=== PATIENT | male | born 1945 | race Caucasian/White ===

== ENCOUNTER → 2018-05-07 | Outpatient (CLI) | payer MEDICARE, BC ==
--- NOTE | 2018-05-07 16:01 | NM ---
EXAMINATION TYPE: NM bone scan whole body DATE OF EXAM: 05/07/2018 COMPARISON: NONE HISTORY: Prostate cancer Delayed whole-body scanning was performed following the injection of 24.6 mCi Tc 99m MDP. Images acq uired 3.5 hours post injection. FINDINGS: Abnormal uptake involving the shoulders, wrists, knees suggestive of post arthritic change. Single abnormal focus involving the posterior right acetabulum nonspecific. Faint abnormal uptake involving the left cervical, lower thoracic, and lumbar spine likely degenerati ve. IMPRESSION: 1. Uptake involving the vertebral column likely degenerative or postsurgical. 2. Nonspecific uptake posterior right acetabulum. No definite corresponding CT abnormality. 3. Abnormal uptake reported within the CT scan within the pubic rami appear mild intensity and theref ore nonspecific but not diagnostic of metastases. Follow-up exam on a short-term basis could be obtai kimberley due to the tiny size of the areas of sclerosis.
--- NOTE | 2018-05-07 16:34 | CT ---
EXAMINATION TYPE: CT pelvis wo con DATE OF EXAM: 05/07/2018 COMPARISON: None HISTORY: Recent diagnosis of prostate carcinoma. CT DLP: 299 mGycm Automated exposure control for dose reduction was used. FINDINGS: The prostate gland is enlarged and heterogenous containing central zone calcifications and evidence o f prior TURP. There is asymmetry of the right lateral mid gland and apex with extension towards the s eminal vesicles and neurovascular bundle. There are no greater than 1 cm short axis lymph nodes withi n the visualized pelvis. Moderate femoral acetabular arthropathy is seen bilaterally. Postsurgical changes are present at the lumbosacral junction. There are punctate sclerotic foci of the inferior pubic rami bilaterally on ser ies 3 image 44 and 43. These are low suspicion. Urinary bladder is nondistended, likely accounting for the circumferential urinary bladder wall thick ening. No evidence of dilated large or small bowel. Appendix is partially air-filled and within tim l limits. The visualized emanating from the right lower pole of the kidney there is a fluid attenuated 3.4 cm p robable right renal cyst. Moderate atherosclerosis is seen of the abdominal aorta and its branches. N umerous calcifications of the subcutaneous soft tissues and gluteal musculature, right greater than l eft, are likely posttraumatic or related to myositis ossificans. IMPRESSION: 1. ASYMMETRY OF THE RIGHT LATERAL MID GLAND AND APEX WITH BULBOUS CONTOUR TOWARDS THE SEMINAL VESICLE AND NEUROVASCULAR BUNDLES. RIGHT SEMINAL VESICLES ARE SLIGHTLY ASYMMETRICALLY ENLARGED IN COMPARISON TO THE LEFT, CONCERNING FOR INVASION. MR PROSTATE COULD BE PERFORMED FOR FURTHER EVALUATION OR 2. PUNCTATE INFERIOR PUBIC RAMI FOCI OF SCLEROSIS FAVORED TO REPRESENT BONE ISLANDS AND OF LOW SUSPIC ION FOR OSSEOUS METASTASIS, HOWEVER SHORT-TERM FOLLOW-UP COULD ENSURE STABILITY.
== END | disposition home or self-care (01) ==
LOC: RADNMMAIN 09:57
PROVIDERS: ATTEND Urology
DX: C61 Malignant neoplasm of prostate (principal); R93.7 Abnormal findings on diagnostic imaging of other parts of musculoskeletal system; Z88.5 Allergy status to narcotic agent
CPT/HCPCS: 72192; 78306; A9503

== ENCOUNTER → 2018-06-21 | Outpatient (CLI) | payer MEDICARE, OTHER ==
[2018-06-21 13:52] LABS: Basophils % (A) 0 %; Eosinophils # (A) 0.2 k/uL (0-0.7); Eosinophils % (A) 2 %; HCT 47.7 % (39.0-53.0); HGB 15.6 gm/dL (13.0-17.5); Lymphocytes # (A) 3.2 k/uL (1.0-4.8); Lymphocytes % (A) 34 %; MCHC 32.7 g/dL (31.0-37.0); MCV 88.9 fL (80.0-100.0); Mean Platelet Volume 6.2; Monocytes # (A) 0.5 k/uL (0-1.0); Monocytes % (A) 5 %; Neutrophils # (A) 5.4 k/uL (1.3-7.7); Neutrophils % (A) 57 %; Platelet Count 260 k/uL (150-450); RBC 5.36 m/uL (4.30-5.90); RDW 13.6 % (11.5-15.5); WBC 9.5 k/uL (3.8-10.6)
[2018-06-21 14:05] LABS: Calcium 9.6 mg/dL (8.4-10.2); Potassium 4.5 mmol/L (3.5-5.1)
== END | disposition home or self-care (01) ==
LOC: LABPAT 12:14
PROVIDERS: ATTEND Urology
DX: Z01.812 Encounter for preprocedural laboratory examination (principal); R53.83 Other fatigue; C61 Malignant neoplasm of prostate; N28.9 Disorder of kidney and ureter, unspecified
CPT/HCPCS: 36415; 80048; 85025; 86850; 86900; 86901

== ENCOUNTER 2018-06-29 07:30 | Inpatient (IN) | payer BC, MEDICARE, OTHER ==
[2018-06-26 14:47] VITALS: BMI 24.6
--- NOTE | 2018-06-29 06:28 | P.GSHP ---
History of Present Illness H&P Date: 06/24/18 Chief Complaint: Prostate cancer The patient is a 73-year-old male who underwent a TURP in January 2013. He was recently seen back in the office for an elevated PSA level of 5.1. JENNY revealed the prostate to be firm in consistency. Prostate ultrasound revealed a 44 g prostate, with no hypoechoic lesions but increased tissue density was noted. Biopsies showed poorly differentiated adenocarcinoma in 12 of 12 biopsies. His metastatic evaluation consisted of a bone scan and computed tomography scan, both of which were negative. Alternative treatment options were reviewed in detail. These include robotic-assisted laparoscopic prostatectomy (RALP) versus IMRT combined with androgen deprivation therapy. He has elected to undergo an RALP with wide excision and extended pelvic lymphadenectomy. - Constitutional Constitutional: Denies weight loss - Gastrointestinal Gastrointestinal: Reports heartburn, Reports indigestion - Genitourinary (Female) Genitourinary: Reports nocturia, Reports urinary frequency Past Medical History Past Medical History: GERD/Reflux, Hyperlipidemia, Renal Disease Additional Past Medical History / Comment(s): Prostate Cancer - Past Family History Mother Family Medical History: No Reported History Medications and Allergies Home Medications Medication Instructions Recorded Confirmed Type Cetirizine HCl [Zyrtec] 10 mg PO DAILY 06/26/18 06/26/18 History Esomeprazole Magnesium [NexIUM] 40 mg PO QAM 06/26/18 06/26/18 History Mirtazapine [Remeron] 15 mg PO HS 06/26/18 06/26/18 History Multivitamins, Thera [Multivitamin 1 tab PO DAILY 06/26/18 06/26/18 History (formulary)] [place]-3 Fatty Acids/Fish Oil [Fish 1 each PO DAILY 06/26/18 06/26/18 History Oil 1,000 mg Softgel] Rosuvastatin [Crestor] 10 mg PO DAILY 06/26/18 06/26/18 History Allergies Allergy/AdvReac Type Severity Reaction Status Date / Time codeine Allergy Nausea & Verified 06/26/18 14:36 Vomiting Surgical - Exam - General well developed, well nourished, no distress - Respiratory normal respiratory effort - Abdomen Abdomen: soft, non tender, no guarding, no rigid, no rebound - Genitourinary normal penis with no external lesions, testicles non-tender - Rectum Rectum: normal sphincter tone, no masses, other (Prostate moderately enlarged, firm in consistency) - Psychiatric oriented to time, oriented to person, oriented to place, speech is normal, memory intact Assessment and Plan (1) Adenocarcinoma of prostate Status: Acute Code(s): C61 - MALIGNANT NEOPLASM OF PROSTATE SNOMED Code(s): 147454054 Plan: The patient has elected to undergo a robotic-assisted laparoscopic prostatectomy (RALP) with bilateral pelvic lymphadenectomy. The procedure has been reviewed in detail with the patient. The anticipated perioperative course was discussed. Potential risks were reviewed, which include anesthesia, bleeding, infection, neurovascular injury, bowel injury, lymphocele, urinary leak, and vesical neck contracture. He understands the possibility that the procedure will need to be converted to an open procedure. The likely need for adjuvant therapy has been discussed. The possibility of post-prostatectomy urinary incontinence is well understood by the patient.
[~2018-06-29 07:30] MED LIST: DEXAMETHASONE SOD PHOSPHATE 10 MG/ML 1 ML VIAL IV ONE; LIDOCAINE 1% 20 ML VIAL (10MG/ML) FOR IV START INTRADERMA PRN; MIDAZOLAM (PF) 2 MG/2 ML VIAL IV PRN; ONDANSETRON 4 MG/2 ML VIAL IVP ONE; ceFAZolin IN SWFI 2 GM/20 ML SYRINGE IVP ONE; fentaNYL (PF) 50 MCG/ML 2 ML AMP IV PRN
[2018-06-29] MEDS: LACTATED RINGERS 1,000 ML IV SCH (10:58)
[2018-06-29] MEDS ORDERED: LIDOCAINE 1% 20 ML VIAL (10MG/ML) FOR IV START INTRADERMA ONE (11:02)
[2018-06-29] MEDS ORDERED: HYDROmorphone (PF) 1 MG/ML ONE (12:07)
[2018-06-29] MEDS ORDERED: LIDOCAINE 1% INJ 10MG/ML (20 ML MDV) ONE (12:07)
[2018-06-29] MEDS ORDERED: SUCCINYLCHOLINE CHLORIDE 100 MG/5 ML SYR IV ONE (12:07)
[2018-06-29] MEDS ORDERED: fentaNYL (PF) 50 MCG/ML 2 ML AMP ONE (12:07)
[2018-06-29] MEDS ORDERED: GLYCOPYRROLATE 0.2 MG/ML 2 ML VIAL ONE (12:07)
[2018-06-29] MEDS ORDERED: NEOSTIGMINE 1 MG/ML 10 ML VIAL ONE (12:07)
[2018-06-29] MEDS ORDERED: ROCURONIUM BROMIDE 10 MG/ML 10 ML VIAL IV ONE (12:07)
[2018-06-29] MEDS ORDERED: PROPOFOL 10 MG/ML 20 ML VIAL IV ONE (12:07)
[2018-06-29] MEDS ORDERED: BUPIVACAINE (PF) 0.25% 30 ML VIAL SQ ONE (12:45)
[2018-06-29] MEDS ORDERED: ACETAMINOPHEN TAB 325 MG TAB PO PRN (14:35)
[2018-06-29] MEDS ORDERED: ONDANSETRON 4 MG/2 ML VIAL IVP PRN (14:35)
--- NOTE | 2018-06-29 14:37 | P.OP ---
Date of Procedure: 06/29/18 Preoperative Diagnosis: Adenocarcinoma of the Prostate Postoperative Diagnosis: Same Procedure(s) Performed: Robotic-assisted laparoscopic prostatectomy (RALP) with bilateral pelvic lymphadenectomy Anesthesia: KIT Surgeon: Libby Ross Java Developer With Security Clearance #1: Michael Chanel Estimated Blood Loss (ml): 50 IV fluids (ml): 800 Pathology: other (Prostate, seminal vesicles, bilateral pelvic lymph nodes) Condition: stable Disposition: PACU Indications for Procedure: The patient is a 73-year-old male who underwent a TURP in January 2013. He was recently seen back in the office for an elevated PSA level of 5.1. JENNY revealed the prostate to be firm in consistency. Prostate ultrasound revealed a 44 g prostate, with no hypoechoic lesions but increased tissue density was noted. Biopsies showed poorly differentiated adenocarcinoma in 12 of 12 biopsies. His metastatic evaluation consisted of a bone scan and computed tomography scan, both of which were negative. Alternative treatment options were reviewed in detail. These include robotic-assisted laparoscopic prostatectomy (RALP) versus IMRT combined with androgen deprivation therapy. He has elected to undergo an RALP with wide excision and extended pelvic lymphadenectomy. Operative Findings: Extensive periprosthetic fibrosis. Description of Procedure: The patient was taken in the operating room and placed in the dorsal lithotomy position, with his legs supported in Rick stirrups. He was carefully positioned on a beanbag for stability. The abdomen and external genitalia were prepped and draped sterilely. A Julio catheter was inserted. The Veress needle was passed through the anterior abdominal wall immediately cephalad to the umbilicus, and insufflation was performed to a pressure of 20 mm Hg. Once insufflation was performed, the Veress needle was removed and a supraumbilical incision was made, through which a 12 mm camera port was placed. Under camera guidance, 3 8 mm robotic ports were placed, 2 on the left and one on the right. An additional 12 mm port was placed on the right lateral side for use as an engineer assistant port. A 5 mm port was placed to the right of the camera port for suction. The patient was placed in Trendelenburg position, and docking was then performed to the da Rocio system utilizing a 4-arm approach. The abdomen was examined. The sigmoid colon was mobilized out of the pelvis. The peritoneum was incised lateral to the medial umbilical ligaments bilaterally , exposing the pubis. The peritoneum was then incised across the midline, allowing the bladder flap to be taken down. The endopelvic fascia was opened bilaterally, and muscular attachments from the urogenital diaphragm were swept away from the prostate. Bilateral pelvic lymphadenectomies were performed in the standard fashion. The peritoneal incisions were extended in a cephalad direction, and the vas deferens were divided bilaterally. Margins of dissection were the bifurcation of the iliac vessels proximally, the circumflex iliac vein distally, the external iliac artery laterally, and the obturator nerve medially. A combination of sharp and blunt dissection was used. Care was taken to avoid any neurovascular injury, and the use of monopolar electrocautery was avoided immediately adjacent to neurovascular structures. The lymphatic package was clipped distally. No enlarged lymph nodes were encountered. There were no complications. The vesical neck was incised transversely, down to the lumen. The Julio catheter was brought out through the anterior vesical neck incision and was used for traction. The posterior aspect of the vesical neck was incised, such that the full-thickness of the vesical neck was divided. The vesical neck was somewhat larger than desired due to the prior TURP. The anterior layer of the Denonvilliers fascia was incised, exposing the vas deferens. Extensive fibrosis was noted, presumably due to the prior TURP. Each vas deferens was isolated and divided. Next, each of the seminal vesicles were dissected away from adjacent tissues, and vascular attachments were cauterized and divided. The posterior leaf of Denonvilliers fascia was incised transversely, allowing entry into the plane between the prostate and rectum. With lateral spreading, this plane was developed down to the apex. This exposed the lateral vascular pedicles bilaterally. These were clipped and divided in an antegrade fashion, down to the apex. Again, significant fibrosis was noted. The remaining apical attachments were swept away from the prostate. The dorsal venous complex was incised, as well as periurethral tissue. At this point, only the urethra remained intact. This was transected immediately distal to the prostatic apex using cold scissors. The specimen was placed within a specimen bag. The dorsal venous complex was sutured using a V-Loc suture in a running fashion. A second V-Loc suture was then used to place the Daniel stitch, incorporating the rhabdosphincter and the edge of Denonvilliers fascia. This allowed the bladder to be taken down to the urethra, leaving the vesical neck immediately adjacent to the urethra. The vesicourethral anastomosis was then performed using a V-Loc suture in a running fashion. After completing the anastomosis, an 18-[place] Julio catheter was placed and approximately 150 mL of 0.9 normal saline were instilled into the bladder. No extravasation of irrigant from the vesicourethral anastomosis was noted. Surgicel was placed over the vascular pedicles bilaterally. Tisseel was sprayed into the pelvis over the vascular pedicles, dorsal vein, and vesicourethral anastomosis. The patient was returned to the supine position. Undocking was performed, and the specimen bag sutures were passed through the camera port. After removing all the ports and allowing all of the CO2 to be released from the peritoneal cavity, the camera port incision was enlarged to allow removal of the surgical specimen. The fascia of this incision was then closed using 0 Vicryl suture in an interrupted [id number] fashion. Each of the skin incisions were then closed using 4-0 Monocryl suture in a subcuticular fashion. Marcaine was injected at each of the incision sites. Dermabond was applied to each incision. The Julio catheter was connected to gravity drainage. All sponge and needle counts were correct. The patient tolerated the procedure well was taken to the recovery room in stable condition.
--- NOTE | 2018-06-29 15:17 | XR ---
EXAMINATION TYPE: XR abdomen 1V DATE OF EXAM: 06/29/2018 COMPARISON: NONE HISTORY: Post surgery, looking for foreign body TECHNIQUE: One view abdominal series FINDINGS: There is subcutaneous emphysema and evidence of free intraperitoneal abdominal air. Report called to the OR. There is postsurgical change involving the lumbar spine. No additional metallic foreign body identified. Arthropathy of the hips. IMPRESSION: 1. Surgical change involving the lumbar spine. No additional radiopaque metallic foreign body identif ied. 2. There appears to be free intraperitoneal abdominal air and extensive subcutaneous emphysema. Corre late clinically.
[2018-06-29] MEDS: HYDROmorphone 0.5 MG/0.5 ML SYRINGE IVP PRN ×4 (15:22→16:22)
[2018-06-29] MEDS: HYDROmorphone 1 MG/ML 1 ML SYRINGE IVP PRN ×2 (18:16→21:04)
[2018-06-29] MEDS: HEPARIN SODIUM,PORCINE 5,000 UNIT/ML 1 ML VIAL SQ SCH (20:59)
[2018-06-29] MEDS ORDERED: MIRTAZAPINE 15 MG TAB PO SCH (21:00)
[2018-06-29] MEDS: DEXTROSE 5%-0.45% NACL 1,000 ML IV SCH (21:00)
[2018-06-30] MEDS ORDERED: ZOLPIDEM 5 MG TAB PO PRN (00:18)
[2018-06-30] MEDS: HYDROmorphone 1 MG/ML 1 ML SYRINGE IVP PRN ×4 (00:29→10:06)
[2018-06-30] MEDS: DEXTROSE 5%-0.45% NACL 1,000 ML IV SCH ×2 (00:30→11:16)
[2018-06-30] MEDS: LACTATED RINGERS 1,000 ML IV SCH (03:55)
[2018-06-30] MEDS ORDERED: PANTOPRAZOLE 40 MG TABLET PO SCH (07:30)
[2018-06-30] MEDS ORDERED: LORATADINE 10 MG TAB PO SCH (09:00)
[2018-06-30] MEDS: HEPARIN SODIUM,PORCINE 5,000 UNIT/ML 1 ML VIAL SQ SCH (09:00)
[2018-06-30] MEDS ORDERED: ATORVASTATIN 20 MG TAB PO SCH (09:00)
[2018-06-30 10:53] VITALS: BP 136/75; PULSE 72; RESP 20; TEMP 98.9
--- NOTE | 2018-06-30 13:03 | P.NPCON ---
History of Present Illness - Reason for Consult Consult date: 06/30/18 chronic renal failure - Chief Complaint Prostatectomy. - History of Present Illness 73-year-old gentleman coming to the hospital for elective prostatectomy. He has history of BPH status post TURP in 2 2012. His PSA was elevated to 5.1 and biopsy consistent with 12 out of 12 adenocarcinoma. He underwent total prostatectomy yesterday. He has underlying chronic kidney disease stage III cause unclear suspected to nephrosclerosis and baseline creatinine is 1.5 MG per DL. No new labs at this point. No NSAID use or recent contrast studies. No hypotensive episodes. Review of Systems Constitutional: Reports as per HPI Past Medical History Past Medical History: COPD, GERD/Reflux, Hyperlipidemia, Renal Disease Additional Past Medical History / Comment(s): Prostate Cancer History of Any Multi-Drug Resistant Organisms: None Reported Past Surgical History: Back Surgery, Hernia Repair, Prostate Surgery Additional Past Surgical History / Comment(s): HX LUMBAR FUSION, [place] CATARACT SX , TURP Past Anesthesia/Blood Transfusion Reactions: No Reported Reaction Past Psychological History: No Psychological Hx Reported Smoking Status: Current every day smoker Past Alcohol Use History: Occasional Additional Past Alcohol Use History / Comment(s): 3 CIGARETTES DAILY SINCE AGE 21'S Past Drug Use History: None Reported - Past Family History Mother Family Medical History: No Reported History Daughter(s) Family Medical History: No Reported History Medications and Allergies Home Medications Medication Instructions Recorded Confirmed Type Cetirizine HCl [Zyrtec] 10 mg PO DAILY 06/26/18 06/29/18 History Esomeprazole Magnesium [NexIUM] 40 mg PO QAM 06/26/18 06/29/18 History Mirtazapine [Remeron] 15 mg PO HS 06/26/18 06/29/18 History Multivitamins, Thera [Multivitamin 1 tab PO DAILY 06/26/18 06/29/18 History (formulary)] [place]-3 Fatty Acids/Fish Oil [Fish 1 cap PO DAILY 06/26/18 06/29/18 History Oil 1,000 mg Softgel] Rosuvastatin [Crestor] 10 mg PO DAILY 06/26/18 06/29/18 History Allergies Allergy/AdvReac Type Severity Reaction Status Date / Time codeine Allergy Nausea & Verified 06/29/18 16:03 Vomiting Physical Exam Vitals: Vital Signs Temp Pulse Resp BP Pulse Ox 06/30/18 07:00 98.9 F 72 20 136/75 94 L 06/30/18 00:26 98.7 F 74 18 128/71 95 06/29/18 18:44 70 16 149/75 96 06/29/18 18:28 67 133/82 95 06/29/18 18:14 70 133/82 96 06/29/18 17:59 69 143/82 95 06/29/18 17:44 69 138/76 95 06/29/18 17:29 68 137/78 95 06/29/18 17:14 97.6 F 70 145/78 94 L 06/29/18 16:24 69 16 122/60 100 06/29/18 16:09 68 16 124/64 96 06/29/18 15:54 67 16 106/76 96 06/29/18 15:39 63 16 124/67 94 L 06/29/18 15:24 63 16 124/66 96 06/29/18 15:09 97 F L 59 L 18 102/61 95 Intake and Output 06/29/18 06/30/18 06/30/18 22:59 06:59 14:59 Intake Total 600 2000 Output Total 140 2750 900 Balance 460 -750 -900 Intake: IV 600 Intake, IV Titration 2000 Amount Dextrose 5%-0.45% NaCl 1, 2000 000 ml @ 125 mls/hr IV . Q8H [facility] Rx#:[id number] Output: Urine 140 2750 900 Uretheral (Julio) 900 Other: Voiding Method Indwelling Catheter Indwelling Catheter Weight 87.09 kg No acute distress S1-S2 heard Lungs clear Julio catheter pinkish urine No edema Assessment and Plan Assessment: #1 CK D3 secondary to nephrosclerosis baseline creatinine 1.5 MG per DL. #2 adenocarcinoma of prostate status post prostatectomy. Plan: #1 no new labs. Currently on IV fluids normal saline at 125 ML's an hour and good urine output. #2 is staying overnight check BMP in the morning if not BMP couple of days before office visit.
--- NOTE | 2018-06-30 13:32 | P.DS ---
Providers Date of admission: 06/29/18 09:32 Expected date of discharge: 06/30/18 Attending physician: Michael Chanel Primary care physician: Tarik Curran - Discharge Diagnosis(es) (1) Adenocarcinoma of prostate Current Visit: No Status: Acute Hospital Course: On the day of admission, the patient underwent an uncomplicated robotic assisted laparoscopic prostatectomy (RALP) with bilateral pelvic lymphadenectomy. Significant periprostatic scarring was noted. Intraoperatively, he was noted to have bilateral inguinal hernias. The postoperative course was unremarkable. He remained afebrile with stable vital signs. On the first postoperative day, he was tolerating diet and ambulating. The abdomen was soft, non-distended, and non-tender. The incisions were clean and dry. The Julio catheter was draining clear yellow urine. Procedures: RALP with bilateral pelvic lymphadenectomy on 06/29/2018. Patient Condition at Discharge: Good Plan - Discharge Summary Discharge Rx Participant: No New Discharge Prescriptions: New Ciprofloxacin HCl [Cipro] 250 mg PO Q12HR #6 tablet HYDROmorphone [Dilaudid] 4 mg PO Q6H PRN 3 Days #6 tab PRN Reason: Severe Pain traMADol HCL [Ultram] 50 mg PO Q6HR PRN 3 Days #12 tab PRN Reason: Moderate To Severe Pain No Action Multivitamins, Thera [Multivitamin (formulary)] 1 tab PO DAILY Mirtazapine [Remeron] 15 mg PO HS Esomeprazole Magnesium [NexIUM] 40 mg PO QAM Cetirizine HCl [Zyrtec] 10 mg PO DAILY Rosuvastatin [Crestor] 10 mg PO DAILY [place]-3 Fatty Acids/Fish Oil [Fish Oil 1,000 mg Softgel] 1 cap PO DAILY Discharge Medication List Cetirizine HCl [Zyrtec] 10 mg PO DAILY 06/26/18 [History] Esomeprazole Magnesium [NexIUM] 40 mg PO QAM 06/26/18 [History] Mirtazapine [Remeron] 15 mg PO HS 06/26/18 [History] Multivitamins, Thera [Multivitamin (formulary)] 1 tab PO DAILY 06/26/18 [History ] [place]-3 Fatty Acids/Fish Oil [Fish Oil 1,000 mg Softgel] 1 cap PO DAILY [History] Rosuvastatin [Crestor] 10 mg PO DAILY 06/26/18 [History] Ciprofloxacin HCl [Cipro] 250 mg PO Q12HR #6 tablet 06/30/18 [Rx] HYDROmorphone [Dilaudid] 4 mg PO Q6H PRN 3 Days #6 tab 06/30/18 [Rx] traMADol HCL [Ultram] 50 mg PO Q6HR PRN 3 Days #12 tab 06/30/18 [Rx] Follow up Appointment(s)/Referral(s): Michael Chanel MD [STAFF PHYSICIAN] - 07/06/18 Activity/Diet/Wound Care/Special Instructions: Discharge home with Julio catheter. Instruct patient to use overnight drainage bag as well as urinary leg bag. Okay to shower. Diet as tolerated. No lifting , driving, or strenuous activity. Reassure patient that abdominal wall ecchymosis and penoscrotal swelling are normal. Instruct patient to begin taking antibiotics one day prior to Julio catheter removal. Discharge Disposition: HOME SELF-CARE
== END 2018-06-30 14:45 | disposition home or self-care (01) | DRG 708 ==
LOC: 2ORMAIN 09:32 → 4SSUR 15:43
PROVIDERS: ADMIT Urology; ATTEND Urology
PROC: 07BC4ZZ Excision of Pelvis Lymphatic, Percutaneous Endoscopic Approach (ICD-10-PCS; 2018-06-29)
PROC: 8E0W4CZ Robotic Assisted Procedure of Trunk Region, Percutaneous Endoscopic Approach (ICD-10-PCS; 2018-06-29)
PROC: 0VT04ZZ Resection of Prostate, Percutaneous Endoscopic Approach (ICD-10-PCS; principal; 2018-06-29 11:25)
DX: C61 Malignant neoplasm of prostate (principal); I12.9 Hypertensive chronic kidney disease with stage 1 through stage 4 chronic kidney disease, or unspecified chronic kidney disease; N18.3 Chronic kidney disease, stage 3 (moderate); E78.5 Hyperlipidemia, unspecified; K40.20 Bilateral inguinal hernia, without obstruction or gangrene, not specified as recurrent; J44.9 Chronic obstructive pulmonary disease, unspecified; K21.9 Gastro-esophageal reflux disease without esophagitis; F17.200 Nicotine dependence, unspecified, uncomplicated; Z79.899 Other long term (current) drug therapy; Z98.1 Arthrodesis status; Z98.42 Cataract extraction status, left eye; Z98.41 Cataract extraction status, right eye
CPT/HCPCS: 74018; 86850; 86900; 86901

== ENCOUNTER 2018-09-03 11:54 | Observation (INO) | payer MEDICARE, OTHER ==
[2018-09-03] MEDS ORDERED: ASPIRIN 81 MG PO STA (12:24)
[2018-09-03] MEDS ORDERED: SODIUM CHLORIDE 0.9% 1,000 ML IV STA (12:24)
[2018-09-03] MEDS ORDERED: HYDROmorphone 1 MG/ML 1 ML SYRINGE IVP STA (12:35)
[2018-09-03] MEDS ORDERED: ONDANSETRON 4 MG/2 ML VIAL IVP STA (12:35)
--- NOTE | 2018-09-03 12:35 | ED ---
General Adult HPI - General Chief complaint: Chest Pain Stated complaint: CHEST PAIN Time Seen by Provider: 09/03/18 12:00 Source: patient, RN notes reviewed Mode of arrival: wheelchair Limitations: no limitations - History of Present Illness Initial comments: This is a 73-year-old male who presents emergency department with past medical history significant for high cholesterol and smoking. Patient also has a recent past medical history significant for prostate cancer for which she had a prostatectomy about 9 weeks ago. Patient comes in today because he was having some left shoulder radiculopathy which she has had many times in the past. Patient states it progressed to anterior chest discomfort as well as left-sided neck discomfort and upper back discomfort. Patient states she was so significant that he was unable to lie flat last night and had to sit up in bed for the whole night. Patient states that symptoms are slightly better now. Patient states it does hurt worse with deep breath in the chest. Patient denies any shortness of breath or difficulty breathing. Patient denies any palpitation. Patient denies any lightheadedness dizziness or syncopal episode. Patient denies any abdominal pain patient denies nausea vomiting diarrhea. Patient denies any recent injury or trauma. Patient denies any swelling of the legs or calf tenderness. - Related Data Home Medications Medication Instructions Recorded Confirmed Cetirizine HCl [Zyrtec] 10 mg PO DAILY 06/26/18 09/03/18 Mirtazapine [Remeron] 15 mg PO HS 06/26/18 09/03/18 Multivitamins, Thera [Multivitamin 1 tab PO DAILY 06/26/18 09/03/18 (formulary)] Cato-3 Fatty Acids/Fish Oil [Fish 1 cap PO DAILY 06/26/18 09/03/18 Oil 1,000 mg Softgel] Rosuvastatin [Crestor] 10 mg PO DAILY 06/26/18 09/03/18 Diazepam [Valium] 5 mg PO HS 09/03/18 09/03/18 Esomeprazole Magnesium [NexIUM] 40 mg PO BID 09/03/18 09/03/18 Leuprolide Acetate [Lupron Depot] 45 mg PO Q28H 09/03/18 09/03/18 Previous Rx's Medication Instructions Recorded HYDROmorphone [Dilaudid] 4 mg PO Q6H PRN 3 Days #6 tab 06/30/18 Allergies Allergy/AdvReac Type Severity Reaction Status Date / Time codeine Allergy Nausea & Verified 09/03/18 12:45 Vomiting Review of Systems ROS Statement: Those systems with pertinent positive or pertinent negative responses have been documented in the HPI. ROS Other: All systems not noted in ROS Statement are negative. Past Medical History Past Medical History: COPD, GERD/Reflux, Hyperlipidemia, Renal Disease Additional Past Medical History / Comment(s): Prostate Cancer History of Any Multi-Drug Resistant Organisms: None Reported Past Surgical History: Back Surgery, Hernia Repair, Prostate Surgery Additional Past Surgical History / Comment(s): HX LUMBAR FUSION, [place] CATARACT SX , TURP Past Anesthesia/Blood Transfusion Reactions: No Reported Reaction Past Psychological History: No Psychological Hx Reported Smoking Status: Current every day smoker Past Alcohol Use History: Occasional Past Drug Use History: None Reported - Past Family History Mother Family Medical History: No Reported History Daughter(s) Family Medical History: No Reported History General Exam - General Exam Comments Initial Comments: GENERAL: Patient is well-developed and well-nourished. Patient is nontoxic and well- hydrated and is in mild distress. ENT: Neck is soft and supple. No significant lymphadenopathy is noted. Oropharynx is clear. Moist mucous membranes. Neck has full range of motion without eliciting any pain. EYES: The sclera were anicteric and conjunctiva were pink and moist. Extraocular movements were intact and pupils were equal round and reactive to light. Eyelids were unremarkable. PULMONARY: Unlabored respirations. Good breath sounds bilaterally. No audible rales rhonchi or wheezing was noted. CARDIOVASCULAR: There is a regular rate and rhythm without any murmurs gallops or rubs. ABDOMEN: Soft and nontender with normal bowel sounds. No palpable organomegaly was noted. There is no palpable pulsatile mass. SKIN: Skin is clear with no lesions or rashes and otherwise unremarkable. NEUROLOGIC: Patient is alert and oriented x3. Cranial nerves II through XII are grossly intact. Motor and sensory are also intact. Normal speech, volume and content. Symmetrical smile. MUSCULOSKELETAL: Normal extremities with adequate strength and full range of motion. No lower extremity swelling or edema. No calf tenderness. LYMPHATICS: No significant lymphadenopathy is noted PSYCHIATRIC: Normal psychiatric evaluation. Normal interpersonal interactions appears functionally intact in deals appropriately with others. No signs of depression. No signs of anxiety. Limitations: no limitations Course Vital Signs 09/03/18 09/03/18 09/03/18 11:57 12:35 12:52 Temperature 99.5 F Pulse Rate 87 78 Pulse Rate [ 76 Bilateral Dustless Operator ] Respiratory 18 18 Rate Blood Pressure 136/81 134/94 O2 Sat by Pulse 96 Oximetry 09/03/18 14:33 Temperature Pulse Rate 68 Pulse Rate [ Bilateral Dustless Operator ] Respiratory 18 Rate Blood Pressure 131/52 O2 Sat by Pulse 97 Oximetry Medical Decision Making - Medical Decision Making EKG shows normal sinus rhythm at 83 bpm MT interval is 170 QRS is 94 QT interval 370 QTC is 444. Patient's EKG shows no ST segment elevation or depression no T-wave abnormalities are noted. Computed tomography scan shows some bibasilar atelectasis. - Lab Data Result diagrams: 09/03/18 12:33 09/03/18 12:33 Lab Results 09/03/18 09/03/18 09/03/18 Range/Units 12:33 12:33 12:33 WBC 11.3 H (3.8-10.6) k/uL RBC 4.94 (4.30-5.90) m/uL Hgb 14.9 (13.0-17.5) gm/dL Hct 43.8 (39.0-53.0) % MCV 88.6 (80.0-100.0) fL MCH 30.1 (25.0-35.0) pg MCHC 34.0 (31.0-37.0) g/dL RDW 14.1 (11.5-15.5) % Plt Count 209 (150-450) k/uL Neutrophils % 81 % Lymphocytes % 11 % Monocytes % 6 % Eosinophils % 1 % Basophils % 0 % Neutrophils # 9.2 H (1.3-7.7) k/uL Lymphocytes # 1.2 (1.0-4.8) k/uL Monocytes # 0.6 (0-1.0) k/uL Eosinophils # 0.1 (0-0.7) k/uL Basophils # 0.0 (0-0.2) k/uL PT (9.0-12.0) sec INR (<1.2) APTT (22.0-30.0) sec D-Dimer (<0.60) mg/L FEU Sodium 139 (137-145) mmol/L Potassium 4.8 (3.5-5.1) mmol/L Chloride 106 (98-107) mmol/L Carbon Dioxide 25 (22-30) mmol/L Anion Gap 8 mmol/L BUN 19 (9-20) mg/dL Creatinine 1.34 H (0.66-1.25) mg/dL Est GFR (CKD-EPI)AfAm 61 (>60 ml/min/1.73 sqM) Est GFR (CKD-EPI)NonAf 53 (>60 ml/min/1.73 sqM) Glucose 136 H (74-99) mg/dL Calcium 9.3 (8.4-10.2) mg/dL Magnesium 1.9 (1.6-2.3) mg/dL Total Bilirubin 1.0 (0.2-1.3) mg/dL AST 22 (17-59) U/L ALT 27 (21-72) U/L Alkaline Phosphatase 54 (38-126) U/L Total Creatine Kinase 48 L (55-170) U/L CK-MB (CK-2) 0.5 (0.0-2.4) ng/mL CK-MB (CK-2) Rel Index 1.0 Troponin I <0.012 (0.000-0.034) ng/mL Total Protein 6.9 (6.3-8.2) g/dL Albumin 4.0 (3.5-5.0) g/dL 09/03/18 Range/Units 12:33 WBC (3.8-10.6) k/uL RBC (4.30-5.90) m/uL Hgb (13.0-17.5) gm/dL Hct (39.0-53.0) % MCV (80.0-100.0) fL MCH (25.0-35.0) pg MCHC (31.0-37.0) g/dL RDW (11.5-15.5) % Plt Count (150-450) k/uL Neutrophils % % Lymphocytes % % Monocytes % % Eosinophils % % Basophils % % Neutrophils # (1.3-7.7) k/uL Lymphocytes # (1.0-4.8) k/uL Monocytes # (0-1.0) k/uL Eosinophils # (0-0.7) k/uL Basophils # (0-0.2) k/uL PT 9.9 (9.0-12.0) sec INR 0.9 (<1.2) APTT 24.8 (22.0-30.0) sec D-Dimer 0.52 (<0.60) mg/L FEU Sodium (137-145) mmol/L Potassium (3.5-5.1) mmol/L Chloride (98-107) mmol/L Carbon Dioxide (22-30) mmol/L Anion Gap mmol/L BUN (9-20) mg/dL Creatinine (0.66-1.25) mg/dL Est GFR (CKD-EPI)AfAm (>60 ml/min/1.73 sqM) Est GFR (CKD-EPI)NonAf (>60 ml/min/1.73 sqM) Glucose (74-99) mg/dL Calcium (8.4-10.2) mg/dL Magnesium (1.6-2.3) mg/dL Total Bilirubin (0.2-1.3) mg/dL AST (17-59) U/L ALT (21-72) U/L Alkaline Phosphatase (38-126) U/L Total Creatine Kinase (55-170) U/L CK-MB (CK-2) (0.0-2.4) ng/mL CK-MB (CK-2) Rel Index Troponin I (0.000-0.034) ng/mL Total Protein (6.3-8.2) g/dL Albumin (3.5-5.0) g/dL Disposition Clinical Impression: Chest pain Disposition: ADMITTED IP TO THIS [facility] Referrals: Tarik Curran MD [Primary Care Provider] - 1-2 days Time of Disposition: 15:06
[2018-09-03 12:56] LABS: Basophils % (A) 0 %; Eosinophils # (A) 0.1 k/uL (0-0.7); Eosinophils % (A) 1 %; HCT 43.8 % (39.0-53.0); HGB 14.9 gm/dL (13.0-17.5); Lymphocytes # (A) 1.2 k/uL (1.0-4.8); Lymphocytes % (A) 11 %; MCH 30.1 pg (25.0-35.0); MCV 88.6 fL (80.0-100.0); Mean Platelet Volume 6.7; Monocytes # (A) 0.6 k/uL (0-1.0); Monocytes % (A) 6 %; Neutrophils # (A) 9.2 k/uL (1.3-7.7); Neutrophils % (A) 81 %; Platelet Count 209 k/uL (150-450); RBC 4.94 m/uL (4.30-5.90); RDW 14.1 % (11.5-15.5); WBC 11.3 k/uL (3.8-10.6)
[2018-09-03 13:05] LABS: Calcium 9.3 mg/dL (8.4-10.2); Magnesium 1.9 mg/dL (1.6-2.3); Potassium 4.8 mmol/L (3.5-5.1); Total Protein 6.9 g/dL (6.3-8.2)
[2018-09-03 13:07] LABS: D-Dimer 0.52 mg/L FEU (<0.60); INR 0.9 (<1.2); Partial Thromboplastin Time 24.8 sec (22.0-30.0); Prothrombin Time 9.9 sec (9.0-12.0)
--- NOTE | 2018-09-03 13:12 | XR ---
EXAMINATION TYPE: XR chest 2V DATE OF EXAM: 09/03/2018 COMPARISON: NONE TECHNIQUE: PA and lateral views submitted. HISTORY: Chest pain FINDINGS: The lungs are clear and there is no pneumothorax, pleural effusion, or focal pneumonia. Hyperinflat ion suggests COPD. Arthropathy of the shoulders. Subsegmental changes at both lung bases. Hypertrophi c and degenerative change of the spine. IMPRESSION: 1. Correlate for COPD. Basilar atelectasis or scar favored over infiltrate correlate clinically. Late ral view does demonstrate increased attenuation particularly posteriorly. Underlying consolidation or neoplasm not entirely excluded.
[2018-09-03 13:13] LABS: Creatine Kinase 48 U/L (55-170)
[2018-09-03 13:26] LABS: Creatine Kinase MB 0.5 ng/mL (0.0-2.4); Troponin I <0.012 ng/mL (0.000-0.034)
--- NOTE | 2018-09-03 14:08 | CT ---
CT CHEST FOR PULMONARY EMBOLISM. EXAMINATION TYPE: CT chest angio for PE DATE OF EXAM: 09/03/2018 INDICATION: chest pain CT DLP: 346.7 mGycm, Automated exposure control for dose reduction was used. CONTRAST: Patient injected with 80 mL of Isovue 370. COMPARISON: None TECHNIQUE: CT of the chest is performed on a spiral scan at 2 mm thick sections. Study is performed with intravenous contrast timed for evaluation for pulmonary embolism. This will limit additional po rtions of the evaluation. 3-D MIP images reconstructed by the technologist are reviewed on the compu ter in the coronal and sagittal planes. FINDINGS: No persistent filling defects are evident to suggest an acute pulmonary embolism. No mediastinal or hilar adenopathy enlarged by CT criteria is evident. The ascending aorta diameter at the level of the main pulmonary artery is 3.9 cm. The main pulmonary artery diameter at the bifur cation is 2.8 cm. Bibasilar infiltrates are present. This could obscure underlying masses. Possible soft tissue densiti es are identified within the bilateral lung bases. There is a 1.6 x 2.7 cm mass in the posterior late ral right midlung. Series 401 image 108 there is increased density within the posterior lateral left lung base measuring 2.7 cm. Series 401 image 117. These could be related to the consolidation. Bibas ilar infiltrates are present most likely compressive atelectasis Limited CT section through the upper abdomen are unremarkable. IMPRESSIONS: 1. No acute pulmonary embolism. 2. Consolidations in the posterior lung bases may be related to atelectasis or pneumonia. Underlying masses are not excluded. Follow-up is recommended.
[2018-09-03] MEDS ORDERED: NITROGLYCERIN SL TABS 0.4 MG TAB SUBLINGUAL PRN (15:06)
[2018-09-03] MEDS ORDERED: KETOROLAC 60 MG/2 ML VIAL IVP STA (15:09)
[2018-09-03] MEDS: NITROGLYCERIN OINT 1 INCH/GM PACKET TOPICAL SCH (15:44)
[2018-09-03] MEDS ORDERED: ZOLPIDEM 10 MG TAB PO PRN (17:21)
[2018-09-03] MEDS ORDERED: traMADol 50 MG TAB PO PRN (17:24)
[2018-09-03] MEDS ORDERED: HYDROmorphone 0.5 MG/0.5 ML SYRINGE IVP PRN (17:37)
[2018-09-03] MEDS ORDERED: PANTOPRAZOLE 40 MG TABLET PO SCH (18:00)
[2018-09-03] MEDS ORDERED: IPRATROPIUM-ALBUTEROL 3 ML NEB INHALATION PRN (18:16)
[2018-09-03 19:06] LABS: Creatine Kinase 40 U/L (55-170)
[2018-09-03 19:18] LABS: Creatine Kinase MB 0.5 ng/mL (0.0-2.4); Troponin I <0.012 ng/mL (0.000-0.034)
[2018-09-03] MEDS: IPRATROPIUM-ALBUTEROL 3 ML NEB INHALATION SCH (19:36)
[2018-09-03] MEDS: HEPARIN SODIUM,PORCINE 5,000 UNIT/ML 1 ML VIAL SQ SCH (19:58)
[2018-09-03] MEDS ORDERED: MIRTAZAPINE 15 MG TAB PO SCH (21:00)
[2018-09-03] MEDS ORDERED: ATORVASTATIN 20 MG TAB PO SCH (21:00)
--- NOTE | 2018-09-03 21:12 | HP ---
HISTORY AND PHYSICAL DATE OF SERVICE: 09/03/2018 CHIEF COMPLAINT: Chest pain and back pain. HISTORY OF PRESENT ILLNESS: This 73-year-old gentleman with a past medical history of multiple medical problems including COPD, history of GERD, hyperlipidemia, history of renal disease, history of prostate cancer, back surgery, history of hernia surgery, history of post surgery lumbar fusion, being followed by Dr. Tarik Taylor in the outpatient setting, recently had laparoscopic prostatectomy with Dr. Chanel. The patient last night had severe pain in the neck which radiated to the back, shoulders, and subsequently patient also had a chest heaviness which persisted and patient came to [facility] and was admitted for further evaluation and treatment. Initial EKG and the troponins were unremarkable. The chest CTA was done. Chest CTA showed bibasilar infiltrates and possible atelectasis. Underlying mass not excluded per the CT scan report. Patient admitted for further evaluation and treatment. There is no history of fever, rigors. No history of headache, loss of consciousness, seizures. PAST MEDICAL HISTORY: History of recent recent prostate surgery, history of hyperlipidemia, history of GERD, COPD, history of back surgery, hernia surgery. MEDICATIONS: Home medications are: 1. Ambien 10 mg q.h.s. p.r.n. 2. Lupron 45 mg every 28 hours. 3. Nexium 40 mg p.o. b.i.d. 4. Valium 5 mg q.h.s. 5. Multivitamins 1 p.o. daily. 6. Remeron 50 mg q.h.s. 7. Dilaudid 4 mg q.6h p.r.n. 8. Zyrtec 10 mg p.o. daily. 9. Crestor 10 mg p.o. daily. 10.Indore-3 fatty acids 1 p.o. daily. ALLERGIES: CODEINE. FAMILY HISTORY: No history of heart disease or strokes in the family. 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 History of smoking. REVIEW OF SYSTEMS: ENT: No diminished vision. No diminished hearing. CARDIOVASCULAR: As mentioned earlier. RESPIRATORY: As mentioned earlier. GI: No nausea or vomiting. no dysuria. NERVOUS SYSTEM: No numbness or weakness. ALLERGY/IMMUNOLOGY: No asthma or hayfever. MUSCULOSKELETAL: As mentioned earlier. HEMATOLOGY/ONCOLOGY: No history of anemia. ENDOCRINE: No history of diabetes. CONSTITUTIONAL: As mentioned earlier. Dermatology: Negative. Rheumatology: Negative. Psychiatry: As mentioned earlier. PHYSICAL EXAM: Patient is alert, oriented times three. Pulse 77. Blood pressure 110/70, respiration 18, temperature 98.2, pulse ox 98% on room air. HEENT: Conjunctivae normal. NECK: No jugular venous distention. CARDIOVASCULAR: S1, S2 muffled. RESPIRATORY: Breath sounds diminished in the bases. No rhonchi. No crackles. ABDOMEN: Soft, nontender. No mass palpable. Status post recent laparoscopic surgery. LEGS: No edema. No swelling. NERVOUS SYSTEM: Higher functions as mentioned earlier. Moves all 4 limbs. No focal motor or sensory deficits. Lymphatics: No lymph nodes palpable in the neck, axillae or groin. SKIN: No ulcer, rash or bleeding. JOINTS: No active deforming arthropathy. LABS: WBC 11.2, hemoglobin 14.9, creatinine is 1.34, glucose 136. ASSESSMENT: 1. Chest pain for evaluation, rule out coronary artery disease. 2. Cervical degenerative joint disease and radiculopathy. 3. Increased creatinine with chronic kidney stage III. 4. Increased WBC. 5. History of recent surgery for prostate cancer. 6. Bilateral bibasilar atelectasis, rule out a mass lesion. 7. Chronic obstructive pulmonary disease. 8. Gastroesophageal reflux disease. 9. Continued ongoing nicotine dependence. 10.Hyperlipidemia. 11.History of back surgery/degenerative joint disease. 12.History of lumbar fusion. RECOMMENDATIONS AND DISCUSSION: In this 73-year-old gentleman who presented with multiple medical issues, at this time, I recommend to continue current medications. Continue to monitor. Symptomatic treatment. Otherwise at this time, I recommend rule out myocardial infarction. Cardiology consultation. Consult Dr. Braswell for abnormal CT scan. Otherwise, incentive spirometry. I would also recommend a course of bronchodilator treatment also otherwise. We will follow the patient closely. Further recommendations to follow. A copy of dictation being forwarded to Dr. Tarik Taylor. SCOTT / ROCN: [id number] /
[2018-09-04] MEDS: NITROGLYCERIN OINT 1 INCH/GM PACKET TOPICAL SCH ×3 (01:06→05:17)
[2018-09-04 02:38] LABS: Creatine Kinase 40 U/L (55-170)
[2018-09-04 02:51] LABS: Creatine Kinase MB 0.6 ng/mL (0.0-2.4); Troponin I <0.012 ng/mL (0.000-0.034)
[2018-09-04 06:52] LABS: Basophils % (A) 1 %; Eosinophils # (A) 0.2 k/uL (0-0.7); Eosinophils % (A) 2 %; HCT 38.4 % (39.0-53.0); HGB 12.7 gm/dL (13.0-17.5); Lymphocytes # (A) 2.7 k/uL (1.0-4.8); Lymphocytes % (A) 35 %; MCH 29.7 pg (25.0-35.0); Mean Platelet Volume 6.1; Monocytes # (A) 0.5 k/uL (0-1.0); Monocytes % (A) 6 %; Neutrophils # (A) 4.2 k/uL (1.3-7.7); Neutrophils % (A) 54 %; Platelet Count 201 k/uL (150-450); RBC 4.27 m/uL (4.30-5.90); RDW 14.3 % (11.5-15.5); WBC 7.8 k/uL (3.8-10.6)
[2018-09-04 07:03] LABS: Calcium 8.4 mg/dL (8.4-10.2); Potassium 4.3 mmol/L (3.5-5.1)
[2018-09-04] MEDS ORDERED: PANTOPRAZOLE 40 MG TABLET PO SCH (07:30)
[2018-09-04] MEDS: HEPARIN SODIUM,PORCINE 5,000 UNIT/ML 1 ML VIAL SQ SCH (08:17)
[2018-09-04] MEDS: IPRATROPIUM-ALBUTEROL 3 ML NEB INHALATION SCH (08:28)
[2018-09-04] MEDS ORDERED: ATORVASTATIN 20 MG TAB PO SCH (09:00)
[2018-09-04] MEDS ORDERED: LORATADINE 10 MG TAB PO SCH (09:00)
[2018-09-04] MEDS ORDERED: NON-FORMULARY DRUG (Omega-3 Fatty Acids/Fish Oil [Fish Oil 1,000 Mg Softgel] 1 CAP) PO SCH (09:00)
[2018-09-04] MEDS ORDERED: ASPIRIN 325 MG TAB PO SCH (09:00)
--- NOTE | 2018-09-04 10:27 | P.CRDCN ---
History of Present Illness History of present illness: This is a pleasant 73-year-old male past medical history significant for dyslipidemia, prostate cancer status post radical prostatectomy 2 months ago , COPD and chronic nicotine dependence. 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 He states he smokes 3 cigarettes a day. He denies history of coronary artery disease, diabetes mellitus or hypertension. We have been asked to see him in consultation for symptoms chest discomfort. He complains of a pleuritic type pain in the midsternal region with radiation through to his back in the mid scapular region into the base of his neck posteriorly. The pain is worse with deep inspiration. He states last night he was unable to lay down in bed due to the pain. When he laid flat the pain came on much more intense. He denies associated shortness of breath, dizziness, palpitations, nausea, vomiting or diaphoresis. He recently underwent a stress test with his primary care physician 3 months ago that the patient states was normal, exact details unavailable at this time. He states he is a very active man and does a lot of work around his 75 acre property in home. He denies any symptoms of exertional chest discomfort. EKG reveals sinus mechanism with no acute ST or T-wave abnormalities noted. Chest x-ray reveals evidence of COPD, basilar atelectasis or scar noted. Lateral view does demonstrate increased attenuation posteriorly underlying consolidation or neoplasm not entirely excluded. CTA chest negative for pulmonary embolism, consolidation posterior lung bases a be related to atelectasis or pneumonia, underlying mass is not excluded. Laboratory data reviewed, WBC on admission 11.3 down to 7.8 today, hemoglobin 12.7, platelets 201, d-dimer 0.52, sodium 140, potassium 4.3, creatinine admission 1.3 421.56 today, magnesium 1.9, cardiac enzymes negative 3, LDL 61. Current cardiac medications include rosuvastatin 10 mg daily. At the time of my exam: CONSTITUTIONAL: Denies fever. Denies chills. EYES: Denies blurred vision. Denies vision changes. Denies eye pain. EARS, NOSE, MOUTH & THROAT: Denies headache. Denies sore throat. Denies ear pain. CARDIOVASCULAR: Denies chest pain. Denies shortness of breath. Denies orthopnea. Denies PND. Denies palpitations. RESPIRATORY: Denies cough. GASTROINTESTINAL: Denies abdominal pain. Denies diarrhea. Denies constipation. Denies nausea. Denies vomiting. MUSCULOSKELETAL: Denies myalgias. INTEGUMENTARY: Denies pruitis. Denies rash. NEUROLOGIC: Denies numbness. Denies tingling. Denies weakness. PSYCHIATRIC: Denies anxiety. Denies depression. ENDOCRINE: Denies fatigue. Denies weight change. Denies polydipsia. Denies polyurina. GENITOURINARY: Denies burning, hematuria or urgency with micturation. HEMATOLOGIC: Denies history of anemia. Denies bleeding. Blood pressure 97/59 heart rate 67 afebrile maintaining oxygen saturation on room air GENERAL: This is a 73-year-old male in no apparent distress at the time of my examination. HEENT: Head is atraumatic, normocephalic. Pupils are equal, round. Sclerae anicteric. Conjunctivae are clear. Mucous membranes of the mouth are moist. Neck is supple. There is no jugular venous distention. No carotid bruit is heard. LUNGS: Clear to auscultation no wheezes, rales or rhonchi. No chest wall tenderness is noted on palpation or with deep breathing. HEART: Regular rate and rhythm without murmurs, rubs or gallops. S1 and S2 heard. ABDOMEN: Soft, nontender. Bowel sounds are heard. No organomegaly noted. EXTREMITIES: No evidence of peripheral edema and no calf tenderness noted. VASCULAR: Radial and dorsalis pedis pulses palpated, no evidence of clubbing. NEUROLOGIC: Patient is awake, alert and oriented x3. ASSESSMENT Chest pain, atypical for angina. An acute coronary event has been ruled out. Recent stress test performed with his primary care physician approximately 3 months ago the patient states was normal. Dyslipidemia, controlled on rosuvastatin History of prostate cancer status post radical prostatectomy COPD Chronic nicotine dependence PLAN An acute coronary event has been ruled out. Obtain report of recent stress test from his primary care physician. Obtain 2-D echocardiogram and Doppler study to assess cardiac structure and function. Patient is essentially stable from a cardiac perspective. Would like to review stress test prior to discharge. Ongoing medical management per primary care team. Thank you kindly for this consultation. Nurse Practitioner note has been reviewed, I agree with a documented findings and plan of care. Patient was seen and examined. Past Medical History Past Medical History: COPD, GERD/Reflux, Hyperlipidemia, Renal Disease Additional Past Medical History / Comment(s): Prostate Cancer History of Any Multi-Drug Resistant Organisms: None Reported Past Surgical History: Back Surgery, Hernia Repair, Prostate Surgery Additional Past Surgical History / Comment(s): HX LUMBAR FUSION, [place] CATARACT SX , TURP Past Anesthesia/Blood Transfusion Reactions: No Reported Reaction Past Psychological History: No Psychological Hx Reported Smoking Status: Current every day smoker Past Alcohol Use History: Occasional Additional Past Alcohol Use History / Comment(s): 3 CIGARETTES DAILY SINCE AGE 21'S Past Drug Use History: None Reported - Past Family History Mother Family Medical History: No Reported History Daughter(s) Family Medical History: No Reported History Medications and Allergies Home Medications Medication Instructions Recorded Confirmed Type Cetirizine HCl [Zyrtec] 10 mg PO DAILY 06/26/18 09/03/18 History Mirtazapine [Remeron] 15 mg PO HS 06/26/18 09/03/18 History Multivitamins, Thera [Multivitamin 1 tab PO DAILY 06/26/18 09/03/18 History (formulary)] [place]-3 Fatty Acids/Fish Oil [Fish 1 cap PO DAILY 06/26/18 09/03/18 History Oil 1,000 mg Softgel] Rosuvastatin [Crestor] 10 mg PO DAILY 06/26/18 09/03/18 History HYDROmorphone [Dilaudid] 4 mg PO Q6H PRN 3 Days #6 tab 06/30/18 09/03/18 Rx Diazepam [Valium] 5 mg PO HS 09/03/18 09/03/18 History Esomeprazole Magnesium [NexIUM] 40 mg PO BID 09/03/18 09/03/18 History Leuprolide Acetate [Lupron Depot] 45 mg PO Q28H 09/03/18 09/03/18 History Zolpidem Tartrate [Ambien] 10 mg PO HS PRN 09/03/18 09/03/18 History Allergies Allergy/AdvReac Type Severity Reaction Status Date / Time codeine Allergy Nausea & Verified 09/03/18 12:45 Vomiting Physical Exam Vitals: Vital Signs Temp Pulse Pulse Pulse Pulse Resp BP 09/04/18 07:00 97.5 F L 67 18 09/04/18 03:52 97.6 F 68 16 09/04/18 03:17 61 17 09/04/18 00:00 65 17 09/03/18 23:36 97.6 F 69 16 09/03/18 20:00 65 65 17 09/03/18 19:48 98.2 F 70 16 09/03/18 17:22 98.2 F 77 18 09/03/18 15:24 70 18 138/72 09/03/18 14:33 68 18 131/52 09/03/18 12:52 78 18 134/94 09/03/18 12:35 76 09/03/18 11:57 99.5 F 87 18 136/81 BP BP Pulse Ox 09/04/18 07:00 97/59 95 09/04/18 03:52 137/64 92 L 09/04/18 03:17 09/04/18 00:00 09/03/18 23:36 113/66 92 L 09/03/18 20:00 09/03/18 19:48 105/63 95 09/03/18 17:22 110/70 93 L 09/03/18 15:24 100 09/03/18 14:33 97 09/03/18 12:52 09/03/18 12:35 09/03/18 11:57 96 Intake and Output 09/03/18 09/04/18 09/04/18 22:59 06:59 14:59 Intake Total 1000 Output Total 2 Balance 1000 -2 Intake: Amount of Fluid Infused ( 1000 ml) Output: Urine 2 Other: Voiding Method Toilet Toilet # Voids 1 1 Results 09/04/18 06:09 09/04/18 06:09 Cardiac Enzymes 09/03/18 09/03/18 09/03/18 Range/Units 12:33 12:33 12:33 WBC 11.3 H (3.8-10.6) k/uL RBC 4.94 (4.30-5.90) m/uL Hgb 14.9 (13.0-17.5) gm/dL Hct 43.8 (39.0-53.0) % MCV 88.6 (80.0-100.0) fL MCH 30.1 (25.0-35.0) pg MCHC 34.0 (31.0-37.0) g/dL RDW 14.1 (11.5-15.5) % Plt Count 209 (150-450) k/uL Neutrophils % 81 % Lymphocytes % 11 % Monocytes % 6 % Eosinophils % 1 % Basophils % 0 % Neutrophils # 9.2 H (1.3-7.7) k/uL Lymphocytes # 1.2 (1.0-4.8) k/uL Monocytes # 0.6 (0-1.0) k/uL Eosinophils # 0.1 (0-0.7) k/uL Basophils # 0.0 (0-0.2) k/uL PT (9.0-12.0) sec INR (<1.2) APTT (22.0-30.0) sec D-Dimer (<0.60) mg/L FEU Sodium 139 (137-145) mmol/L Potassium 4.8 (3.5-5.1) mmol/L Chloride 106 (98-107) mmol/L Carbon Dioxide 25 (22-30) mmol/L Anion Gap 8 mmol/L BUN 19 (9-20) mg/dL Creatinine 1.34 H (0.66-1.25) mg/dL Est GFR (CKD-EPI)AfAm 61 (>60 ml/min/1.73 sqM) Est GFR (CKD-EPI)NonAf 53 (>60 ml/min/1.73 sqM) Glucose 136 H (74-99) mg/dL Calcium 9.3 (8.4-10.2) mg/dL Magnesium 1.9 (1.6-2.3) mg/dL Total Bilirubin 1.0 (0.2-1.3) mg/dL AST 22 (17-59) U/L ALT 27 (21-72) U/L Alkaline Phosphatase 54 (38-126) U/L Total Creatine Kinase 48 L (55-170) U/L CK-MB (CK-2) 0.5 (0.0-2.4) ng/mL CK-MB (CK-2) Rel Index 1.0 Troponin I <0.012 (0.000-0.034) ng/mL Total Protein 6.9 (6.3-8.2) g/dL Albumin 4.0 (3.5-5.0) g/dL Triglycerides (<150) mg/dL Cholesterol (<200) mg/dL LDL Cholesterol, Calc (0-99) mg/dL HDL Cholesterol (40-60) mg/dL 09/03/18 09/03/18 09/04/18 Range/Units 12:33 18:22 00:35 WBC (3.8-10.6) k/uL RBC (4.30-5.90) m/uL Hgb (13.0-17.5) gm/dL Hct (39.0-53.0) % MCV (80.0-100.0) fL MCH (25.0-35.0) pg MCHC (31.0-37.0) g/dL RDW (11.5-15.5) % Plt Count (150-450) k/uL Neutrophils % % Lymphocytes % % Monocytes % % Eosinophils % % Basophils % % Neutrophils # (1.3-7.7) k/uL Lymphocytes # (1.0-4.8) k/uL Monocytes # (0-1.0) k/uL Eosinophils # (0-0.7) k/uL Basophils # (0-0.2) k/uL PT 9.9 (9.0-12.0) sec INR 0.9 (<1.2) APTT 24.8 (22.0-30.0) sec D-Dimer 0.52 (<0.60) mg/L FEU Sodium (137-145) mmol/L Potassium (3.5-5.1) mmol/L Chloride (98-107) mmol/L Carbon Dioxide (22-30) mmol/L Anion Gap mmol/L BUN (9-20) mg/dL Creatinine (0.66-1.25) mg/dL Est GFR (CKD-EPI)AfAm (>60 ml/min/1.73 sqM) Est GFR (CKD-EPI)NonAf (>60 ml/min/1.73 sqM) Glucose (74-99) mg/dL Calcium (8.4-10.2) mg/dL Magnesium (1.6-2.3) mg/dL Total Bilirubin (0.2-1.3) mg/dL AST (17-59) U/L ALT (21-72) U/L Alkaline Phosphatase (38-126) U/L Total Creatine Kinase 40 L 40 L (55-170) U/L CK-MB (CK-2) 0.5 0.6 (0.0-2.4) ng/mL CK-MB (CK-2) Rel Index 1.3 1.5 Troponin I <0.012 <0.012 (0.000-0.034) ng/mL Total Protein (6.3-8.2) g/dL Albumin (3.5-5.0) g/dL Triglycerides (<150) mg/dL Cholesterol (<200) mg/dL LDL Cholesterol, Calc (0-99) mg/dL HDL Cholesterol (40-60) mg/dL 09/04/18 09/04/18 Range/Units 06:09 06:09 WBC 7.8 (3.8-10.6) k/uL RBC 4.27 L (4.30-5.90) m/uL Hgb 12.7 L (13.0-17.5) gm/dL Hct 38.4 L (39.0-53.0) % MCV 90.0 (80.0-100.0) fL MCH 29.7 (25.0-35.0) pg MCHC 33.0 (31.0-37.0) g/dL RDW 14.3 (11.5-15.5) % Plt Count 201 (150-450) k/uL Neutrophils % 54 % Lymphocytes % 35 % Monocytes % 6 % Eosinophils % 2 % Basophils % 1 % Neutrophils # 4.2 (1.3-7.7) k/uL Lymphocytes # 2.7 (1.0-4.8) k/uL Monocytes # 0.5 (0-1.0) k/uL Eosinophils # 0.2 (0-0.7) k/uL Basophils # 0.0 (0-0.2) k/uL PT (9.0-12.0) sec INR (<1.2) APTT (22.0-30.0) sec D-Dimer (<0.60) mg/L FEU Sodium 140 (137-145) mmol/L Potassium 4.3 (3.5-5.1) mmol/L Chloride 108 H (98-107) mmol/L Carbon Dioxide 27 (22-30) mmol/L Anion Gap 5 mmol/L BUN 22 H (9-20) mg/dL Creatinine 1.56 H (0.66-1.25) mg/dL Est GFR (CKD-EPI)AfAm 51 (>60 ml/min/1.73 sqM) Est GFR (CKD-EPI)NonAf 44 (>60 ml/min/1.73 sqM) Glucose 94 (74-99) mg/dL Calcium 8.4 (8.4-10.2) mg/dL Magnesium (1.6-2.3) mg/dL Total Bilirubin (0.2-1.3) mg/dL AST (17-59) U/L ALT (21-72) U/L Alkaline Phosphatase (38-126) U/L Total Creatine Kinase (55-170) U/L CK-MB (CK-2) (0.0-2.4) ng/mL CK-MB (CK-2) Rel Index Troponin I (0.000-0.034) ng/mL Total Protein (6.3-8.2) g/dL Albumin (3.5-5.0) g/dL Triglycerides 84 (<150) mg/dL Cholesterol 122 (<200) mg/dL LDL Cholesterol, Calc 61 (0-99) mg/dL HDL Cholesterol 44 (40-60) mg/dL Coagulation 09/03/18 Range/Units 12:33 PT 9.9 (9.0-12.0) sec APTT 24.8 (22.0-30.0) sec Lipids 09/04/18 Range/Units 06:09 Triglycerides 84 (<150) mg/dL Cholesterol 122 (<200) mg/dL HDL Cholesterol 44 (40-60) mg/dL CBC 09/03/18 09/04/18 Range/Units 12:33 06:09 WBC 11.3 H 7.8 (3.8-10.6) k/uL RBC 4.94 4.27 L (4.30-5.90) m/uL Hgb 14.9 12.7 L (13.0-17.5) gm/dL Hct 43.8 38.4 L (39.0-53.0) % Plt Count 209 201 (150-450) k/uL Comprehensive Metabolic Panel 09/03/18 09/04/18 Range/Units 12:33 06:09 Sodium 139 140 (137-145) mmol/L Potassium 4.8 4.3 (3.5-5.1) mmol/L Chloride 106 108 H (98-107) mmol/L Carbon Dioxide 25 27 (22-30) mmol/L BUN 19 22 H (9-20) mg/dL Creatinine 1.34 H 1.56 H (0.66-1.25) mg/dL Glucose 136 H 94 (74-99) mg/dL Calcium 9.3 8.4 (8.4-10.2) mg/dL AST 22 (17-59) U/L ALT 27 (21-72) U/L Alkaline Phosphatase 54 (38-126) U/L Total Protein 6.9 (6.3-8.2) g/dL Albumin 4.0 (3.5-5.0) g/dL Current Medications Generic Name Dose Route Start Last Admin Trade Name Freq PRN Reason Stop Dose Admin Albuterol/Ipratropium 3 ml 09/03/18 20:00 09/03/18 19:36 Duoneb 0.5 Mg-3 Mg/3 Ml Soln INHALATION Not Given RT-TID [facility] Albuterol/Ipratropium 3 ml 09/03/18 18:16 Duoneb 0.5 Mg-3 Mg/3 Ml Soln INHALATION RT-TID PRN Shortness Of Breath Or Wheezing Aspirin 325 mg 09/04/18 09:00 Aspirin PO DAILY [facility] Atorvastatin Calcium 20 mg 09/03/18 21:00 09/03/18 19:55 Lipitor PO 20 mg HS [facility] Administration Heparin Sodium (Porcine) 5,000 unit 09/03/18 21:00 09/03/18 19:58 Heparin SQ Not Given Q12HR [facility] Hydromorphone HCl 0.5 mg 09/03/18 17:37 Dilaudid IVP Q4HR PRN Pain Loratadine 10 mg 09/04/18 09:00 Claritin PO DAILY [facility] Mirtazapine 15 mg 09/03/18 21:00 09/03/18 19:55 Remeron PO 15 mg HS [facility] Administration Multivitamins 1 each 09/04/18 12:00 Theragran PO DAILY@1200 [facility] Nitroglycerin 1 inch 09/03/18 18:00 09/04/18 05:17 Nitro-Bid Oint TOPICAL 1 inch Q6HR [facility] Administration Nitroglycerin 0.4 mg 09/03/18 15:06 Nitrostat SUBLINGUAL Q5M PRN Chest Pain Pantoprazole Sodium 40 mg 09/04/18 07:30 Protonix PO AC-BRKFST VEE Tramadol HCl 50 mg 09/03/18 17:24 Ultram PO QID PRN Pain Zolpidem Tartrate 10 mg 09/03/18 17:21 09/03/18 20:54 Ambien PO 10 mg HS PRN Administration Insomnia Intake and Output 09/03/18 09/04/18 09/04/18 22:59 06:59 14:59 Intake Total 1000 Output Total 2 Balance 1000 -2 Intake: Amount of Fluid Infused ( 1000 ml) Output: Urine 2 Other: Voiding Method Toilet Toilet # Voids 1 1 09/04/18 06:09 09/04/18 06:09
[2018-09-04] MEDS ORDERED: MULTIVITAMINS, THERA 1 EACH TAB PO SCH (12:00)
--- NOTE | 2018-09-04 12:13 | ECHOF ---
Referral Reason:chest pain MEASUREMENTS -------- HEIGHT: 157.5 cm WEIGHT: 87.1 kg BP: 137/64 RVIDd: 3.7 cm (< 3.3) IVSd: 1.0 cm (0.6 - 1.1) LVIDd: 3.8 cm (3.9 - 5.3) LVPWd: 1.1 cm (0.6 - 1.1) IVSs: 1.5 cm LVIDs: 2.4 cm LVPWs: 1.8 cm LAESV Index (A-L): 21.94 ml/m Ao Diam: 3.6 cm (2.0 - 3.7) AV Cusp: 2.3 cm (1.5 - 2.6) LA Diam: 3.2 cm (2.7 - 3.8) MV EXCURSION: 17.007 mm (> 18.000) MV EF SLOPE: 107 mm/s (70 - 150) EPSS: 0.6 cm MV E Elbert: 0.61 m/s MV DecT: 173 ms MV A Elbert: 0.52 m/s MV E/A Ratio: 1.19 AR PHT: 1622 ms RAP: 5.00 mmHg RVSP: 20.11 mmHg FINDINGS -------- Sinus rhythm. This was a technically good study. The left ventricular size is normal. Left ventricular wall thickness is normal. Overall left vent ricular systolic function is normal with, an EF between 55 - 60 %. The right ventricle is mildly enlarged. The left atrium is normal in size. The right atrium is normal in size. Trace amount of aortic regurgitation. The mitral valve leaflets are mildly thickened. There is trace mitral regurgitation. Trace tricuspid regurgitation present. The right ventricular systolic pressure, as measured by Dopp ler, is 20.11mmHg. Pulmonic valve appears structurally normal. The aortic root size is normal. Normal inferior vena cava with normal inspiratory collapse consistent with estimated right atrial pre ssure of 5 mmHg. The pericardium is normal. CONCLUSIONS -------- 1. Sinus rhythm. 2. This was a technically good study. 3. The left ventricular size is normal. 4. Left ventricular wall thickness is normal. 5. Overall left ventricular systolic function is normal with, an EF between 55 - 60 %. 6. The right ventricle is mildly enlarged. 7. The left atrium is normal in size. 8. The right atrium is normal in size. 9. Trace amount of aortic regurgitation. 10. The mitral valve leaflets are mildly thickened. 11. There is trace mitral regurgitation. 12. Trace tricuspid regurgitation present. 13. The right ventricular systolic pressure, as measured by Doppler, is 20.11mmHg. 14. Pulmonic valve appears structurally normal. 15. The aortic root size is normal. 16. Normal inferior vena cava with normal inspiratory collapse consistent with estimated right atrial pressure of 5 mmHg. 17. The pericardium is normal. BUSINESS SALES CONSULTANT: Lisa Espinoza RDCS
[2018-09-04 12:16] VITALS: BP 103/73; PULSE 60; RESP 18; TEMP 97.3
--- NOTE | 2018-09-04 21:04 | CONS ---
CONSULTATION DATE OF CONSULTATION: 09/04/2018 This is a 73-year-old male who presents to the emergency department with a past medical history of hyperlipidemia, prostate cancer, previous tobacco use. The patient has a history of prostate cancer, for which he had a prostatectomy about 9 weeks ago. It was a redo prostatectomy. It was done by Dr. Chanel and some other seo consultant. The patient came in because of chest pain. He had chest discomfort. No shortness of breath. He states he did feel the pain when he took a deep breath. It was also in his back and the left side of his neck. For that reason, he was seen in the emergency room and evaluated by Cardiology. Apparently Cardiology felt that the patient did not have cardiac disease. This was based on the testing they did. In the process of working the patient up, he had a CT angiogram which showed some nodular infiltrates in the lower lobes. Because of his smoking history, we were consulted for concerns about lung cancer. The patient has a good appetite. He is not losing any weight. He denies any shortness of breath, cough, wheezing, phlegm production or hemoptysis. Denies any history of lung disease. 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 He lives on a [place]. He states he is very active. Our plan for this patient will be an outpatient PET scan and a followup in the office. Likely we will do a PFT in the office as well. The abnormalities on the CT scan could relate to atelectasis and/or infiltrate. It could also relate to mass. It is in the lower lobes bilaterally, making me think it is more likely atelectasis, since he does not have any pneumonic symptoms. His current home medications include: 1. Zyrtec. 2. Multiple vitamins. 3. [place] fatty acids. 4. Crestor. 5. Valium. 6. Nexium. 7. Lupron injections. 8. He also apparently has a previous history of being on Dilaudid for a period of time. ALLERGIES: CODEINE. PAST MEDICAL HISTORY: His medical history includes: 1. Possible COPD from tobacco use, although never previously diagnosed. 2. Gastroesophageal reflux disease. 3. Hyperlipidemia. 4. Prostate cancer with previous prostatectomy. 5. He has also had hernia repair. 6. Back surgery. 7. Lumbar fusion. 8. Bilateral cataract surgery. 9. TURP. SOCIAL HISTORY: Positive for being a current everyday smoker. He smokes 3 cigarettes a day. He previously smoked about 5 cigarettes a day. Denies any alcohol use to any great extent. Denies any illicit drug use. FAMILY HISTORY: Noncontributory. 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 REVIEW OF SYSTEMS: CONSTITUTIONAL: Negative. NEUROLOGIC: Negative. HEENT: Negative. CARDIOVASCULAR: Chest pain, chest discomfort. PULMONARY: Negative. GI: Negative. : Negative. RHEUMATOLOGIC: Negative. IMMUNOLOGIC: Negative. ENDOCRINOLOGIC: Negative. DERMATOLOGIC: Negative. PHYSICAL EXAMINATION: Current vital signs are reviewed. Temperature is 97.3, heart rate 72, respiratory rate 18, blood pressure 103/73, mean 83, room-air saturation 96%. Appears in no acute distress. HEENT examination is grossly unremarkable. Mucous membranes are moist. No oral lesions. NECK: Supple. Full range of motion. No adenopathy. Cardiovascular examination reveals regular rhythm and rate. S1, S2 normal. No S3, S4 or murmur. Lungs reveal relatively clear breath sounds. No wheezes, rhonchi or crackles. Breath sounds are equal bilaterally. ABDOMEN: Soft. Bowel sounds are heard. Extremities are intact. No cyanosis, clubbing or edema. Skin without rash. Neurologic examination is brief but nonfocal. LABORATORY DATA: Includes a white count of 7.8, hemoglobin 12.7, hematocrit 38.4, platelet count 201,000. PT, INR, PTT and D-dimers are all normal. Sodium 140, potassium 4.3, chloride 108, CO2 of 27. Anion gap is 5. BUN and creatinine were 22 and 1.56. Troponins were negative x3. The rest of his labs look okay. The patient had a chest x-ray which shows some bilateral, bibasilar atelectasis. CT angiogram was negative for PE. It does show some consolidations in the posterior lung bases which may be related to atelectasis and/or pneumonia or possible mass. I suspect they relate to atelectasis. Echocardiogram shows sinus rhythm, normal left ventricular size and function. There is some very trace valvular heart disease. Overall, the scan looks relatively normal. Medications are reviewed. ASSESSMENT: 1. Abnormal CT scan showing either bibasilar atelectasis, which is favored, versus infiltrates in a patient who is asymptomatic for any pulmonary disease. 2. Doubt malignancy, but the patient will be evaluated more thoroughly with a PET scan and pulmonary function tests. 3. No history to suggest cardiac disease at this time. 4. No evidence of pulmonary embolism. 5. History of hyperlipidemia. 6. Previous history of prostate cancer with prostatectomy recently. 7. History of gastroesophageal reflux disease. 8. Ongoing tobacco use with nicotine addiction. 9. Multiple lumbar procedures. PLAN (SEPTEMBER 04, 2018): The patient is doing well. The patient will be scheduled for an outpatient PET scan this Monday. We will see in the office the following week. The patient will have pulmonary function tests. Additional recommendations and suggestions are forthcoming. Will continue to follow. The patient is counseled about the importance of smoking cessation. Again, I feel likely this does not represent malignancy but rather atelectasis. The patient is not having any complaints to suggest pneumonia. MMODL / IJN: [id number] /
--- NOTE | 2018-09-05 07:58 | DS ---
DISCHARGE SUMMARY DATE OF SERVICE: 09/04/2018 FINAL DIAGNOSES: 1. Chest pain, myocardial infarction ruled out. Possibly nonspecific, musculoskeletal. 2. Cervical degenerative joint disease as well as radiculopathy. 3. Bilateral atelectasis, possibly for evaluation. 4. Increased creatinine with chronic kidney stage III. 5. Increased WBC. 6. History of recent surgery for prostate cancer. 7. Bibasilar atelectasis, rule out a mass lesion. 8. Chronic obstructive pulmonary disease. 9. Gastroesophageal reflux disease. 10.Continued ongoing nicotine dependence. 11.Hyperlipidemia. 12.History of back surgery, degenerative joint disease. 13.History of lumbar fusion. DISCHARGE DISPOSITION: The patient will be discharged in a stable condition with guarded prognosis. Discharged cleared by Dr. Braswell and as well as Cardiology personnel. HISTORY OF PRESENT ILLNESS: This is a 73-year-old gentleman with a past history of multiple medical problems, being followed by Dr. Tarik Curran in the outpatient setting, was admitted with chest pain, neck pain and back pain. The patient myocardial infarction ruled out. Cardiology saw the patient. Patient recently had a stress test. CT scan showed bilateral bibasilar atelectasis, possibly mass cannot be excluded. Dr. Braswell recommended outpatient followup and a PET scan also. On exam, vital signs are stable. CARDIOVASCULAR: S1, S2. ABDOMEN: Soft. NERVOUS SYSTEM: No focal deficits. Discharge diet is cardiac diet. Activity limited until followup. Follow up with the Dr. Tarik Curran in 2-3 days. Follow up with Dr. Braswell as recommended. Follow up with Cardiology as recommended. MEDICATIONS ARE FOLLOWS:: 1. Zyrtec 10 mg p.o. daily. 2. Valium 5 mg q.h.s. 3. Nexium 40 mg p.o. b.i.d. 4. Lupron 45 mg q. 28 days. 5. Remeron 50 mg q.h.s. 6. Multivitamins 1 p.o. daily. 7. Fish oil 1 p.o. daily. 8. Crestor 10 mg daily. 9. Ambien 10 mg q.h.s. p.r.n. 10.Dilaudid p.r.n. as before. 11.Albuterol 2 puffs b.i.d. Once again, the patient will be discharged in a stable condition with guarded prognosis. MMODL / IJN: [id number] /
== END 2018-09-04 12:22 | disposition home or self-care (01) ==
LOC: EC 11:54 → 1SOBS 15:06
PROVIDERS: ADMIT Hospitalist; ATTEND Hospitalist
DX: R07.89 Other chest pain (principal); R07.81 Pleurodynia; E78.00 Pure hypercholesterolemia, unspecified; E78.5 Hyperlipidemia, unspecified; F17.210 Nicotine dependence, cigarettes, uncomplicated; J98.11 Atelectasis; N18.3 Chronic kidney disease, stage 3 (moderate); D72.829 Elevated white blood cell count, unspecified; Z71.6 Tobacco abuse counseling; J44.9 Chronic obstructive pulmonary disease, unspecified; K21.9 Gastro-esophageal reflux disease without esophagitis; M47.812 Spondylosis without myelopathy or radiculopathy, cervical region; Z85.46 Personal history of malignant neoplasm of prostate; Z90.79 Acquired absence of other genital organ(s); Z98.1 Arthrodesis status; Z79.899 Other long term (current) drug therapy; Z88.5 Allergy status to narcotic agent
CPT/HCPCS: 96372; 96361; 96374; 96375; 99285; 36415; 94640; 94760; 93005; 93306; 85379; 80061; 80053; 80048; 82550 ×2; 82553 ×2; 83735; 84484 ×2; 85025 ×2; 85610; 85730; 71046; 71275; G0378 ×2; J1644; J2405; J1885; J1170; Q9967

== ENCOUNTER → 2018-09-08 | Outpatient (CLI) | payer MEDICARE ==
--- NOTE | 2018-09-09 20:05 | PE ---
EXAMINATION TYPE: PET CT fusion skull to thigh DATE OF EXAM: 09/08/2018 COMPARISON: CTA chest 09/03/2018 Prior PET/CT: None HISTORY: History of prostate cancer, solitary pulmonary nodule TECHNIQUE: Following the intravenous administration of mCi of F-18 FDG, whole body images are perfor med from the skull base to the midthigh. Images are reviewed on the computer in the coronal, axial, and sagittal planes. Reconstructed rotating images are created on independent workstation and review ed on the computer. A localization and attenuation correction CT is performed in conjunction with t he PET scan. DLP: 457.28 mGycm SCAN: Initial Blood glucose: 90 mg/dL Average Mediastinum SUV: 1.58 Average Liver SUV: 1.86 FINDINGS: NECK: No abnormal uptake THORAX: No abnormal uptake. Previous infiltrates densities at the lung bases has resolved. No residual underlying nodularity is e vident. No abnormal uptake within these regions is evident. ABDOMEN: No abnormal uptake PELVIS: No abnormal uptake. There is likely some contamination anteriorly the groin. OSSEOUS STRUCTURES: No abnormal uptake LOCALIZATION CT: Beam hardening artifact along the mandible is present. The ascending thoracic aortic pulmonary artery is 3.8 cm previously. The bifurcation is 2.6 cm. Previous infiltrates have resolved . Mild emphysematous changes are noted. Some streak atelectasis in the right middle lobe. No suspicio us uptake is evident within this region. Right renal cysts are present. COMPARISON: Resolution of the consolidations at the lung bases is evident IMPRESSION: 1. No suspicious uptake to suggest metastatic disease. No abnormal uptake primary neoplasm.
== END | disposition home or self-care (01) ==
LOC: RADPETMAIN 08:27
PROVIDERS: ATTEND Internal Medicine Critical Care Medicine
DX: R91.8 Other nonspecific abnormal finding of lung field (principal)
CPT/HCPCS: 78815; A9552

== ENCOUNTER 2019-04-15 11:34 | Emergency (ER) | payer MEDICARE, OTHER ==
[2019-04-15] MEDS ORDERED: SODIUM CHLORIDE 0.9% 1,000 ML IV STA (12:10)
[2019-04-15] MEDS ORDERED: IBUPROFEN 600 MG TAB PO STA (12:11)
[2019-04-15] MEDS ORDERED: ACETAMINOPHEN TAB 500 MG TAB PO STA (12:11)
--- NOTE | 2019-04-15 12:13 | ED ---
General Adult HPI - General Chief complaint: Abdominal Pain Stated complaint: fever/abdominal pain Time Seen by Provider: 04/15/19 11:40 Source: patient, RN notes reviewed Mode of arrival: wheelchair Limitations: physical limitation - History of Present Illness Initial comments: This is a 74-year-old male who presents emergency Department complaining of generalized body aches since Monday evening. Patient states he has myalgias everywhere. Patient states he has 101 102 fever every day. Patient states he didn't take his temperature today. Patient states as of last night he started having some upper abdominal pain more the right upper quadrant but also in the epigastric region. Patient denies any chest pain difficulty breathing shortness of breath per patient denies any cough. Patient denies any nausea vomiting diarrhea. Eyes any headache patient denies numbness weakness. Patient denies any rashes or areas of erythema. Patient denies any leg swelling or calf tenderness. Patient denies any dysuria hematuria urinary frequency however he states he recently did have urinary tract infection. Patient states he is on Crestor but stopped that a few days ago. - Related Data Home Medications Medication Instructions Recorded Confirmed Cetirizine HCl [Zyrtec] 10 mg PO DAILY 06/26/18 04/15/19 Multivitamins, Thera [Multivitamin 1 tab PO DAILY 06/26/18 04/15/19 (formulary)] [place]-3 Fatty Acids/Fish Oil [Fish 1 cap PO DAILY 06/26/18 04/15/19 Oil 1,000 mg Softgel] Rosuvastatin [Crestor] 10 mg PO HS 06/26/18 04/15/19 Esomeprazole Magnesium [NexIUM] 40 mg PO BID 09/03/18 04/15/19 Leuprolide Acetate [Lupron Depot] 45 mg PO Q18D 09/03/18 04/15/19 Zolpidem Tartrate [Ambien] 10 mg PO HS PRN 09/03/18 04/15/19 Acetaminophen Tab [Tylenol Tab] 1,000 mg PO Q6HR PRN 04/15/19 04/15/19 Mirtazapine 7.5 mg PO HS 04/15/19 04/15/19 Previous Rx's Medication Instructions Recorded Ciprofloxacin HCl [Cipro] 500 mg PO Q12HR #20 tablet 04/15/19 Allergies Allergy/AdvReac Type Severity Reaction Status Date / Time codeine Allergy Nausea & Verified 04/15/19 12:05 Vomiting Review of Systems ROS Statement: Those systems with pertinent positive or pertinent negative responses have been documented in the HPI. ROS Other: All systems not noted in ROS Statement are negative. Past Medical History Past Medical History: COPD, GERD/Reflux, Hyperlipidemia, Renal Disease Additional Past Medical History / Comment(s): Prostate Cancer, syncope History of Any Multi-Drug Resistant Organisms: None Reported Past Surgical History: Back Surgery, Hernia Repair, Prostate Surgery Additional Past Surgical History / Comment(s): HX LUMBAR FUSION, [place] CATARACT SX, TURP Past Anesthesia/Blood Transfusion Reactions: No Reported Reaction Past Psychological History: No Psychological Hx Reported Smoking Status: Current every day smoker Past Alcohol Use History: Occasional Past Drug Use History: None Reported - Past Family History Mother Family Medical History: No Reported History Daughter(s) Family Medical History: No Reported History General Exam - General Exam Comments Initial Comments: GENERAL: Patient is well-developed and well-nourished. Patient is nontoxic and well- hydrated and is in mild distress. ENT: Neck is soft and supple. No significant lymphadenopathy is noted. Oropharynx is clear. Moist mucous membranes. Neck has full range of motion without eliciting any pain. EYES: The sclera were anicteric and conjunctiva were pink and moist. Extraocular movements were intact and pupils were equal round and reactive to light. Eyelids were unremarkable. PULMONARY: Unlabored respirations. Good breath sounds bilaterally. No audible rales rhonchi or wheezing was noted. CARDIOVASCULAR: There is a regular rate and rhythm without any murmurs gallops or rubs. ABDOMEN: Patient has mild tenderness in the right upper quadrant epigastric region no rebound or guarding SKIN: Skin is clear with no lesions or rashes and otherwise unremarkable. NEUROLOGIC: Patient is alert and oriented x3. Cranial nerves II through XII are grossly intact. Motor and sensory are also intact. Normal speech, volume and content. Symmetrical smile. MUSCULOSKELETAL: Normal extremities with adequate strength and full range of motion. LYMPHATICS: No significant lymphadenopathy is noted PSYCHIATRIC: Normal psychiatric evaluation. Limitations: physical limitation Course Vital Signs 04/15/19 04/15/19 04/15/19 11:39 12:34 14:41 Temperature 98.8 F 100.4 F H 98.0 F Pulse Rate 84 81 Respiratory 18 16 Rate Blood Pressure 123/69 121/73 O2 Sat by Pulse 96 99 Oximetry Medical Decision Making - Medical Decision Making Patient has urinary tract infection. I gave the patient 2 g of Rocephin emergency department. Patient was reevaluated anyone to be treated as an outpatient. - Lab Data Result diagrams: 04/15/19 12:37 04/15/19 12:37 Lab Results 04/15/19 04/15/19 04/15/19 Range/Units 12:37 12:37 12:37 WBC 11.1 H (3.8-10.6) k/uL RBC 4.25 L (4.30-5.90) m/uL Hgb 13.1 (13.0-17.5) gm/dL Hct 36.1 L (39.0-53.0) % MCV 84.9 (80.0-100.0) fL MCH 30.8 (25.0-35.0) pg MCHC 36.2 (31.0-37.0) g/dL RDW 13.0 (11.5-15.5) % Plt Count 285 (150-450) k/uL Neutrophils % 64 % Lymphocytes % 24 % Monocytes % 7 % Eosinophils % 1 % Basophils % 0 % Neutrophils # 7.1 (1.3-7.7) k/uL Lymphocytes # 2.6 (1.0-4.8) k/uL Monocytes # 0.8 (0-1.0) k/uL Eosinophils # 0.1 (0-0.7) k/uL Basophils # 0.0 (0-0.2) k/uL Sodium 138 (137-145) mmol/L Potassium 4.4 (3.5-5.1) mmol/L Chloride 103 (98-107) mmol/L Carbon Dioxide 25 (22-30) mmol/L Anion Gap 10 mmol/L BUN 22 H (9-20) mg/dL Creatinine 1.66 H (0.66-1.25) mg/dL Est GFR (CKD-EPI)AfAm 47 (>60 ml/min/1.73 sqM) Est GFR (CKD-EPI)NonAf 40 (>60 ml/min/1.73 sqM) Glucose 92 (74-99) mg/dL Plasma Lactic Acid Berto 0.5 L (0.7-2.0) mmol/L Calcium 8.9 (8.4-10.2) mg/dL Total Bilirubin 0.6 (0.2-1.3) mg/dL AST 33 (17-59) U/L ALT 35 (21-72) U/L Alkaline Phosphatase 71 (38-126) U/L Creatine Kinase 42 L (55-170) U/L Troponin I (0.000-0.034) ng/mL Total Protein 6.7 (6.3-8.2) g/dL Albumin 3.7 (3.5-5.0) g/dL Amylase 89 (30-110) U/L Lipase 91 (23-300) U/L Urine Color Urine Appearance (Clear) Urine pH (5.0-8.0) Ur Specific [place] (1.001-1.035) Urine Protein (Negative) Urine Glucose (UA) (Negative) Urine Ketones (Negative) Urine Blood (Negative) Urine Nitrite (Negative) Urine Bilirubin (Negative) Urine Urobilinogen (<2.0) mg/dL Ur Leukocyte Esterase (Negative) Urine RBC (0-5) /hpf Urine WBC (0-5) /hpf Urine WBC Clumps (None) /hpf Urine Bacteria (None) /hpf Urine Mucus (None) /hpf Influenza Type A RNA (Not Detectd) Influenza Type B (PCR) (Not Detectd) 04/15/19 04/15/19 04/15/19 Range/Units 12:37 12:48 13:45 WBC (3.8-10.6) k/uL RBC (4.30-5.90) m/uL Hgb (13.0-17.5) gm/dL Hct (39.0-53.0) % MCV (80.0-100.0) fL MCH (25.0-35.0) pg MCHC (31.0-37.0) g/dL RDW (11.5-15.5) % Plt Count (150-450) k/uL Neutrophils % % Lymphocytes % % Monocytes % % Eosinophils % % Basophils % % Neutrophils # (1.3-7.7) k/uL Lymphocytes # (1.0-4.8) k/uL Monocytes # (0-1.0) k/uL Eosinophils # (0-0.7) k/uL Basophils # (0-0.2) k/uL Sodium (137-145) mmol/L Potassium (3.5-5.1) mmol/L Chloride (98-107) mmol/L Carbon Dioxide (22-30) mmol/L Anion Gap mmol/L BUN (9-20) mg/dL Creatinine (0.66-1.25) mg/dL Est GFR (CKD-EPI)AfAm (>60 ml/min/1.73 sqM) Est GFR (CKD-EPI)NonAf (>60 ml/min/1.73 sqM) Glucose (74-99) mg/dL Plasma Lactic Acid Berto (0.7-2.0) mmol/L Calcium (8.4-10.2) mg/dL Total Bilirubin (0.2-1.3) mg/dL AST (17-59) U/L ALT (21-72) U/L Alkaline Phosphatase (38-126) U/L Creatine Kinase (55-170) U/L Troponin I <0.012 (0.000-0.034) ng/mL Total Protein (6.3-8.2) g/dL Albumin (3.5-5.0) g/dL Amylase (30-110) U/L Lipase (23-300) U/L Urine Color Yellow Urine Appearance Cloudy (Clear) Urine pH 5.5 (5.0-8.0) Ur Specific [place] 1.014 (1.001-1.035) Urine Protein Trace H (Negative) Urine Glucose (UA) Negative (Negative) Urine Ketones Negative (Negative) Urine Blood Negative (Negative) Urine Nitrite Negative (Negative) Urine Bilirubin Negative (Negative) Urine Urobilinogen <2.0 (<2.0) mg/dL Ur Leukocyte Esterase Large H (Negative) Urine RBC 2 (0-5) /hpf Urine WBC 64 H (0-5) /hpf Urine WBC Clumps Moderate H (None) /hpf Urine Bacteria Many H (None) /hpf Urine Mucus Rare H (None) /hpf Influenza Type A RNA Not Detected (Not Detectd) Influenza Type B (PCR) Not Detected (Not Detectd) Disposition Clinical Impression: Urinary tract infection Disposition: HOME SELF-CARE Condition: Good Instructions (If sedation given, give patient instructions): Urinary Tract Infection in Women (ED) Prescriptions: Ciprofloxacin HCl [Cipro] 500 mg PO Q12HR #20 tablet Is patient prescribed a controlled substance at d/c from ED?: No Referrals: Scott Braswell DO [Primary Care Provider] - 1-2 days Time of Disposition: 15:54
[2019-04-15 12:52] LABS: Basophils % (A) 0 %; Eosinophils # (A) 0.1 k/uL (0-0.7); Eosinophils % (A) 1 %; HCT 36.1 % (39.0-53.0); HGB 13.1 gm/dL (13.0-17.5); Lymphocytes # (A) 2.6 k/uL (1.0-4.8); Lymphocytes % (A) 24 %; MCH 30.8 pg (25.0-35.0); MCHC 36.2 g/dL (31.0-37.0); MCV 84.9 fL (80.0-100.0); Mean Platelet Volume 5.6; Monocytes # (A) 0.8 k/uL (0-1.0); Monocytes % (A) 7 %; Neutrophils # (A) 7.1 k/uL (1.3-7.7); Neutrophils % (A) 64 %; Platelet Count 285 k/uL (150-450); RBC 4.25 m/uL (4.30-5.90); WBC 11.1 k/uL (3.8-10.6)
[2019-04-15 13:01] LABS: Albumin 3.7 g/dL (3.5-5.0); Calcium 8.9 mg/dL (8.4-10.2); Potassium 4.4 mmol/L (3.5-5.1); Total Bilirubin 0.6 mg/dL (0.2-1.3); Total Protein 6.7 g/dL (6.3-8.2)
--- NOTE | 2019-04-15 13:29 | XR ---
EXAMINATION TYPE: XR chest 2V DATE OF EXAM: 04/15/2019 COMPARISON: 09/03/2018 HISTORY: 74-year-old male with abdominal pain and fever TECHNIQUE: PA and lateral views FINDINGS: Heart upper limits of normal in size. Aorta and pulmonary vasculature within normal limits. Mild biap ical pleural-parenchymal scarring. Strandy atelectasis mid and lower lungs. Mild hyperinflation. No c onsolidation or pleural effusion. IMPRESSION: Possible underlying COPD. Some mild patchy posterior basilar opacity favored to represent atelectasis but early infiltrate difficult to exclude.
--- NOTE | 2019-04-15 13:45 | US ---
EXAMINATION TYPE: US gallbladder DATE OF EXAM: 04/15/2019 COMPARISON: CLINICAL HISTORY: Right upper quadrant abdominal pain . RUQ pain, last ate at 8:00 am. Hx renal fail ure. EXAM MEASUREMENTS: Liver Length: 19.3 cm Gallbladder Wall: 0.2 cm CBD: 0.3 cm Right Kidney: 11.4 x 5.2 x 5.2 cm Pancreas: Tail obscured by overlying bowel gas, main pancreatic duct- 1.5 mm. Liver: Appears enlarged in size Gallbladder: wnl Evidence for sonographic Puente's sign: neg CBD: wnl Right Kidney: Multiple cystic appearing lesions visualized, largest measured. Largest on lateral wi th septations - 4.2 x 3.8 x 3.1 cm. Largest mid = 5.3 x 3.5 x 3.4 cm. Upper pole echogenic focus wi th shadow = 0.6 cm IMPRESSION: 1. Limited assessment of the pancreas due to bowel gas. If there is concern for pancreatic abnormalit y correlate with CT scan. 2. Hepatomegaly. 3. Multiple right-sided renal cysts with nonobstructing 6 mm renal calculus. Some of the renal cyst c ontaining a septation likely on the basis of a Bosniak 2 classification cyst.
[2019-04-15 14:04] LABS: Appearance,Urine Cloudy (Clear); Bacteria,Urine Many /hpf; Bilirubin,Urine Negative (Negative); Blood,Urine Negative (Negative); Color,Urine Yellow; Glucose,Urine (UA) Negative (Negative); Ketones,Urine Negative (Negative); Leukocyte Esterase,Urine Large (Negative); Mucus,Urine Rare /hpf; Nitrite,Urine Negative (Negative); PH, Urine 5.5 (5.0-8.0); Protein,Urine Trace (Negative); RBC,Urine 2 /hpf (0-5); Specific Gravity,Urine 1.014 (1.001-1.035); Urobilinogen,Urine <2.0 mg/dL (<2.0); WBC,Urine 64 /hpf (0-5)
[2019-04-15 14:42] VITALS: RESP 16; TEMP 98
[2019-04-15] MEDS ORDERED: cefTRIAXone IN SWFI 1,000 MG/10 ML SYRINGE IVP STA (14:43)
[2019-04-15 16:05] VITALS: BP 134/75; PULSE 76
== END 2019-04-15 16:03 | disposition home or self-care (01) ==
LOC: EC 11:34
DX: N39.0 Urinary tract infection, site not specified (principal); K21.9 Gastro-esophageal reflux disease without esophagitis; E78.5 Hyperlipidemia, unspecified; F17.200 Nicotine dependence, unspecified, uncomplicated; Z85.46 Personal history of malignant neoplasm of prostate; Z98.1 Arthrodesis status; Z98.890 Other specified postprocedural states; Z79.899 Other long term (current) drug therapy; Z88.5 Allergy status to narcotic agent
CPT/HCPCS: 36415; 80053; 82150; 82550; 83605; 83690; 84484; 85025; 81001; 86618; 87502; 71046; 76705; 99284; 96374; 96361; J0696

== ENCOUNTER → 2023-04-27 | Outpatient (CLI) | payer MEDICARE, OTHER ==
--- NOTE | 2023-04-27 10:56 | XR ---
EXAMINATION TYPE: XR Hip Complete RT DATE OF EXAM: 04/27/2023 COMPARISON: NONE HISTORY: Pain TECHNIQUE: 2 views submitted FINDINGS: There is no evidence of erosive change or acute fracture. Mild to moderate arthropathy with hypertrop hic changes in the acetabulum. Soft tissue ossifications are noted. IMPRESSION: 1. Mild to moderate arthropathy correlate femoral acetabular impingement.
[2023-04-27 11:15] LABS: African American GFR (CKD) 61 (>60 ml/min/1.73 sqM); Blood Urea Nitrogen 24 mg/dL (9-20); Non-African American GFR(CKD) 53 (>60 ml/min/1.73 sqM)
--- NOTE | 2023-04-27 13:33 | CT ---
EXAMINATION TYPE: CT abdomen pelvis w con DATE OF EXAM: 04/27/2023 COMPARISON: CT chest 08/24/2018 HISTORY: Follow up prostate cancer [address] DLP: 1266.10 mGycm CONTRAST: CT scan of the abdomen and pelvis is performed with Oral Contrast and with IV Contrast, patient injec maria victoria with 80mL mL of Isovue 300. FINDINGS: LUNG BASES-: No visible nodule. No infiltrate. Right middle lobe atelectasis or parenchymal scarring . Mild dependent atelectasis at the lung bases. LIVER/GB: No calcified gallstones. No space occupying hepatic lesion. Biliary tree is of normal ca liber. Mild hepatic steatosis noted. PANCREAS: No inflammation. No distinct mass. SPLEEN: No splenic enlargement. No lesion seen. Granulomas noted. ADRENALS: No nodule. No thickening. KIDNEYS/BLADDER: No hydronephrosis. No nephrolithiasis. Bilateral simple renal cystic changes noted . Largest cyst midpole right kidney measures 6.6 x 3.8 cm. Additional exophytic cyst lower pole right kidney measures 4.2 cm maximal dimension. Largest cyst lower pole left kidney is also exophytic and measures 3.1 cm. No solid renal masses noted. Urinary bladder grossly unremarkable. BOWEL: Normal appendix. Normal bowel caliber. No inflammation. GENITAL ORGANS: No gross abnormality. LYMPH NODES: No greater than 1cm abdominal or pelvic lymph nodes are appreciated. AORTA: No significant abnormality. OSSEOUS STRUCTURES: There is sclerosis involving the L3 vertebral segment felt to reflect metastatic lesion until proven otherwise. Postoperative changes of laminectomy and fusion at L4-5 and L5-S1. Sma ll focus of sclerosis left intertrochanteric region as well as the posterior right ilium at the S2-S3 level axial image 67. OTHER: No significant additional abnormality is seen. IMPRESSION: 1. Suspect bony metastatic lesion L3. Additional small sclerotic foci noted as discussed above. 2. Hepatic steatosis. 3. Renal cystic changes.
--- NOTE | 2023-04-27 15:21 | NM ---
EXAMINATION TYPE: NM bone scan whole body DATE OF EXAM: 04/27/2023 COMPARISON: 05/07/2018 CLINICAL INDICATION: Male, 78 years old with history of C79.51 SECONDARY MALIGNANT NEOPLASM OF BONE; Delayed whole-body scanning was performed following the injection of 25.1 mCi Tc 99m MDP. Images acq uired 3 hours post injection. FINDINGS: There now is in intense abnormal uptake at the approximate level of L3 suspicious for metastases. Pat hologic fracture through the right transverse process in the differential diagnosis. Abnormal uptake involving the bilateral wrists and shoulders likely degenerative. Additional small foci of sclerosis in the right ischium is high intensity uptake and also suspicious for metastases. There are additional scattered abnormal foci of sclerosis reported by CT which are likely too small t o be detected by bone scan which also should be monitored for metastases. Mild intensity uptake throughout thoracic spine likely degenerative. Moderate intensity uptake L4-S1 appears to correspond to postsurgical changes. Abnormal uptake involving the right foot likely post arthritic. IMPRESSION: 1. Intense abnormal uptake L3 concordant CT findings compatible with metastases. 2. Abnormal uptake involving the right pelvis\ischium also suspicious for metastases.
== END | disposition home or self-care (01) ==
LOC: RADNMMAIN 10:05
PROVIDERS: ATTEND Radiology Radiation Oncology
DX: C79.51 Secondary malignant neoplasm of bone (principal); C61 Malignant neoplasm of prostate; M25.851 Other specified joint disorders, right hip; K76.0 Fatty (change of) liver, not elsewhere classified; N28.1 Cyst of kidney, acquired; M89.8X8 Other specified disorders of bone, other site; Z79.899 Other long term (current) drug therapy
CPT/HCPCS: 82565; 84520; 73502; 74177; 36415; 78306; A9503; Q9967

== ENCOUNTER → 2023-07-06 | Outpatient (CLI) | payer MEDICARE, OTHER ==
--- NOTE | 2023-07-07 13:10 | MR ---
EXAMINATION TYPE: MR lumbar spine wo con DATE OF EXAM: 07/06/2023 COMPARISON: 03/24/2023 HISTORY: Lower back pain with BLE radiculopathy. Hx surgery 2018. Prostate cancer. TECHNIQUE: Multiplanar, multisequence images of the lumbar spine were acquired without IV contrast. Findings: The lumbar vertebral segments are normal in height and alignment. There is intradiscal and posterior metallic fusion with laminectomy from L4 through S1 Secondary to circumferential disc bulge, hypertrophy of the facet joints and thickening ligamentum fl avum, there is moderate to severe spinal stenosis at the L3-4 level. Similar changes resulting in mod erate spinal stenosis at the L2-3 level and mild spinal stenosis at the L1-2 level. There is diffuse abnormal signal intensity in the L3 vertebral segment given the history of prostate cancer and correlation with prior studies findings are consistent with metastatic disease process ext ends into the posterior elements at L3 but there is no definite pathologic fracture. There is no focal disc protrusion or herniation. The paraspinal soft tissues are unremarkable. The conus medullaris and cauda equina appear normal. There is mild neural foraminal stenosis at the L3-4 level bilaterally. IMPRESSION: 1. Abnormal signal intensity within the L3 vertebral segment consistent with metastatic disease. Ther e is no pathologic fracture. 2. Postsurgical changes of spinal laminectomy and posterior and anterior spinal fusion from L4 throug h S1. 3. Multilevel spinal stenosis as described above including L1-2, L2-3 and L3-4 levels. 4. No focal disc protrusion or herniation.
== END | disposition home or self-care (01) ==
LOC: RADMRIMAIN 14:01
PROVIDERS: ATTEND Radiology Radiation Oncology
DX: C79.51 Secondary malignant neoplasm of bone (principal); M48.061 Spinal stenosis, lumbar region without neurogenic claudication; C61 Malignant neoplasm of prostate; Z79.899 Other long term (current) drug therapy; Z98.1 Arthrodesis status
CPT/HCPCS: 72148

== ENCOUNTER → 2023-09-16 | Outpatient (CLI) | payer MEDICARE, OTHER ==
--- NOTE | 2023-09-16 15:38 | MR ---
EXAMINATION TYPE: MR lumbar spine wo con DATE OF EXAM: 09/16/2023 3:10 PM CLINICAL INDICATION:Male, 78 years old with history of C79.51 SECONDARY MALIGNANT NEOPLASM BONE; PHH, Radiculopathy, pain into left lower extremity COMPARISON: CT 04/27/2023, MRI 07/06/2023. TECHNIQUE: Multi planar, multi sequence imaging was performed utilizing: T1-weighted, T2-weighted, a nd turbo inversion recovery imaging of the lumbar spine. IV Contrast: cc . (None if empty) FINDINGS: Alignment: The lumbar vertebral bodies have preserved heights and alignment. Cord: The conus medullaris and the distal spinal cord appear unremarkable with regards to their signa l intensity and morphology. Bones/Discs: Redemonstration of abnormal bony signal within the L3 vertebrae similar prior correlatin g with sclerosis on CT 04/27/2023. Fixation hardware at L4 4 L5 and S1 is present. There is soft tiss ue fluid collection similar prior imaging measuring 7.6 x 3.6 cm in the surgical bed posteriorly. Thi s extends towards the thecal sac at the surgical levels with series 301 image 10. No definitive commu nication to the thecal sac identified. T12-L1: No evidence of significant spinal canal stenosis or neural foraminal stenosis. L1-L2: Disc bulge and facet joint arthropathy result in mild spinal canal and mild to moderate right and moderate left neural foraminal stenosis. L2-L3: Disc bulge and facet joint arthropathy result in mild to moderate spinal canal and mild to mod erate left and moderate right neural foraminal stenosis. L3-L4: Disc bulge and facet joint arthropathy result in mild spinal canal and moderate left and moder ate to severe right neural foraminal stenosis. L4-L5: Postsurgical changes at this level. Spinal canal is patent. There is moderate neural foraminal stenosis on the left and moderate to severe on the right. L5-S1: Postsurgical changes at this level. The spinal canal is patent. There is mild neural foraminal stenosis bilaterally. No significant spinal canal or neural foraminal stenosis in the remainder of the visualized levels. Other findings: Simple appearing bilateral high T2 signal renal cysts. IMPRESSION: 1. Postsurgical changes of the spine extending from L4 S1. There is a surgical bed seroma which is n ot significantly changed. No significant spinal canal stenosis at these levels. 2. Similar abnormal bony signal within the L3 vertebra to moderate correlate with sclerosis on prior CT imaging. 3. Multilevel degeneration changes throughout the spine with mild to moderate spinal canal stenosis at L2-L3. 4. Neural foraminal stenosis worse at L2-L3, L3-L4 and L4-L5 on the left with moderate neural forami nal stenosis. To severe right L3-L4 neural foraminal stenosis
== END | disposition home or self-care (01) ==
LOC: RADMRIMAIN 13:42
PROVIDERS: ATTEND Radiology Radiation Oncology
DX: M47.26 Other spondylosis with radiculopathy, lumbar region (principal); C79.51 Secondary malignant neoplasm of bone; C61 Malignant neoplasm of prostate; M48.061 Spinal stenosis, lumbar region without neurogenic claudication; M99.73 Connective tissue and disc stenosis of intervertebral foramina of lumbar region; Z79.899 Other long term (current) drug therapy; Z98.890 Other specified postprocedural states
CPT/HCPCS: 72148

== ENCOUNTER → 2023-11-08 | Outpatient (CLI) | payer MEDICARE, OTHER ==
[2023-11-08 13:10] VITALS: BP 130/80; PULSE 66; RESP 16; TEMP 97.7
--- NOTE | 2023-11-08 14:36 | P.PAINPG ---
PQRS Measure Charge Sheet Comment: HISTORY OF PRESENT ILLNESS: A 78 yr old male as a referral from Dr Anil Costa w a PMH of Prostate CA, COPD, CKD, COPD and OA presents today w severe and chronic LBP > 1 yr secondary to post laminectomy syndrome for evaluation. Pt states pain level is provoked at 7/10 in intensity, constant, localized in the lower lumbar spine, predominantly axial, dull in character w occasional shooting pain towards the BL knees. Pain is provoked by standing for periods > 10 min. Pain is alleviated by physician guided home exercises/ stretches 5 times weekly since Sep 2023, medications (Fentanyl 25mcg/h q72h, Erie 10/325mg #120, Neurontin 300mg #90, Nucynta 100mg #90), repositioning and rest . Oswestry axial pain score at 40. PMH: OA, COPD, GERD, Hyperlipidemia, CKD, Prostate CA PSH: TURP, Prostatectomy, L4-S1 Laminectomy/ Fusion, L3 Microdiscectomy (Jul 2023), L3 Dural Leak Repair (Sep 2023), Kyphoplasty (Oct 2023), BL Cataract Extraction, Hernia Repair, Nephrolithiasis SH: Daily tobacco use, Occasional ETOH use, No illicit drug use FH: Mo- No Reported History. Fa- No Reported History All: See list Meds: See list REVIEW OF ORGAN SYSTEMS: CONSTITUTIONAL: No fevers or chills. No recent weight loss. NEUROLOGICAL: + numbness and tingling along the distal extremities. No seizure disorders or headaches. MUSCULOSKELETAL: + pain PSYCHIATRIC: Denies current depression or suicidal thoughts. Physical Examinations : Constitutional : Cooperative , not in acute distress . Neurologic : Cranial nerve II to XII intact. No focal neurological deficits. Psychiatric : alert & oriented x 3. Matching mood & appropriate affect. Judgment & insight intact. Musculoskeletal : Cervical Spine Motor strength in the deltoid and bic eps: Normal right side. Normal Left side Motor strength biceps and the wrist extensors: Normal right side . Normal left side Motor strength in the triceps muscle: Normal right side. Normal left side Deep tendon reflexes: Normal at the biceps. Normal at Brachioradialis. Normal at triceps Vertebral body tenderness to deep palpation over Cervical facet loading test: positive bilaterally Spurling test: positive bilaterally Neck distraction test: positive bilaterally Conchis sign: positive bilaterally Lumbar spine Motor strength lower extremities ,thigh and legs 5/5 Right side , 5/5 Left side Deep tendon reflexes : Normal Knee Jerk. Normal Ankle Jerk Vertebral body tenderness over Tijerina Test positive BL L3-L4 Lumbar facet Loading Test: positive Right / positive Left Range of motion of the lumbar spine Flexion 30 degrees, extension 10 degrees Straight Leg Raise test: Left/ Right positive at degrees Giovani test: positive right / positive left. Severe tenderness over the Sacroiliac joint on the Right / Left sides Gaenslen test: positive bilaterally Seated flexion test: positive bilate rally. Sacral spine : Severe tenderness over the Sacroiliac joint: right side / left side Range of motion: Flexion of the lumbar spine <60 degrees Range of motion: Extension of the lumbar spine <20 degrees Gaenslen's Test positive Giovani test: positive right side / left side Thigh Thrust Test Sacral Thrust Test Imaging: MRI non contrast of the lumbar spine from 10/26/23 reviewed Assessment/ Plan : L4-S1 Laminectomy/ Fusion, L3 Microdiscectomy, L3 Dural Leak Repair, L3 Ky phoplasty Recommendation of medication management and BL TFESI L3-L4 #1. May need a series of injections for optimal pain relief. Risks, benefits of procedure discussed and patient verbalized understanding. Admits to anti- coagulant use or medical history of diabetes. Protocol for discontinuation/ continuation of medications sujata procedure discussed. Minimal anesthesia provided, if clinically indicated, consisting of Versed and Fentanyl. Opiate/ narcotic agreement signed 11/08/23. Nucynta 100mg #90, Fentanyl 75mcg/hr #10, Neurontin 300mg #90 w 1 RF. Will discontinue Erie 10/325mg. Use, side e ffects adverse reactions, safe storage discussed. All questions answered. I have spent greater than 30 minutes on patient care today. Dr Rosales was available by phone for the evaluation of this patient. The time was used to review the medical records including relevant urine studies and Prescription history (MAPs), review of the available imaging, evaluation and examination of the patient, coordination of care with the medical staff and if applicable referring physicians, as well as creation of the medical record PQRS Narrative: Smoking Status Current every day smoker Home Medications: Ambulatory Orders Multivitamins, Thera [Multivitamin (formulary)] 1 tab PO DAILY 06/26/18 Clarkrange-3 Fatty Acids/Fish Oil [Fish Oil 1,000 mg Softgel] 1 cap PO DAILY 06/26/18 Potassium Chloride ER [K-Dur 10] 10 meq DAILY 02/10/23 Aspirin [Adult Low Dose Aspirin EC] 81 mg PO 11/08/23 Calcium Carbonate [Tums] 500 mg PO QID 11/08/23 Calcium Citrate 600 mg PO 11/08/23 Denosumab [Prolia] 120 mg SQ 11/08/23 Dexlansoprazole [Dexilant] 60 mg PO 11/08/23 Enzalutamide [Xtandi] 40 mg PO 11/08/23 Gabapentin [Neurontin] 300 mg PO QID 30 Days #90 cap 11/08/23 Leuprolide Acetate [Lupron Depot] 45 mg IM 11/08/23 Megestrol [Megace] 20 mg PO 11/08/23 Multivitamin/Iron/Folic Acid [Centrum Complete Multivit Tab] 1 each PO 11/08/23 Tapentadol HCl [Nucynta] 50 mg PO TID PRN 30 Days #90 tab 11/08/23 Zolpidem Tartrate [Ambien] 10 mg PO PRN 11/08/23 dexAMETHasone [Decadron] 4 mg PO BID 11/08/23 diazePAM [Valium] 5 mg PO DAILY PRN 1 Days #2 tab 11/08/23 fentaNYL 75MCG/HR PATCH [Duragesic 75MCG/HR] 75 mcg TRANSDERM Q72H 3 Days #1 patch 11/08/23 fentaNYL 75MCG/HR PATCH [Duragesic 75MCG/HR] 75 mcg TRANSDERM Q72H 30 Days #10 patch 11/08/23 methocarbamoL [Robaxin-750] 750 mg PO QID 11/08/23 polyethylene glycoL 3350 [Miralax] 17 gm PO DAILY 11/08/23 Controlled Substance Measures - Controlled Substance Measures Is patient prescribed a controlled substance at discharge?: Yes When asked, does pt state using other controlled substances?: Yes If prescribed controlled substance>3 days was MAPS reviewed?: Yes If Rx opioid, was Start Talking consent form obtained?: Yes Was information provided regarding opioid addiction?: Yes
== END ==
LOC: PNWHC3 11:35
PROVIDERS: ATTEND Specialist
DX: M96.1 Postlaminectomy syndrome, not elsewhere classified (principal); C61 Malignant neoplasm of prostate; C79.51 Secondary malignant neoplasm of bone; F17.200 Nicotine dependence, unspecified, uncomplicated; Z79.899 Other long term (current) drug therapy; Z98.1 Arthrodesis status; Z98.890 Other specified postprocedural states; Z88.5 Allergy status to narcotic agent
CPT/HCPCS: 99211

== ENCOUNTER 2023-11-14 12:27 | Day surgery (SDC) | payer MEDICARE, OTHER ==
[2023-11-13 11:35] VITALS: BMI 25.7
[~2023-11-14 12:27] MED LIST changes: -DEXAMETHASONE SOD PHOSPHATE 10 MG/ML 1 ML VIAL IV ONE; +LACTATED RINGERS 1,000 ML IV SCH; -LIDOCAINE 1% 20 ML VIAL (10MG/ML) FOR IV START INTRADERMA PRN; -MIDAZOLAM (PF) 2 MG/2 ML VIAL IV PRN; -ONDANSETRON 4 MG/2 ML VIAL IVP ONE; -ceFAZolin IN SWFI 2 GM/20 ML SYRINGE IVP ONE; -fentaNYL (PF) 50 MCG/ML 2 ML AMP IV PRN
[2023-11-14 13:17] LABS: Glucose,Whole Blood 112 mg/dL (70-110)
[2023-11-14 13:18] VITALS: RESP 16; TEMP 97
[2023-11-14] MEDS ORDERED: methylPREDNISolone ACETATE 40 MG/ML 1 ML VIAL ONE (13:22)
[2023-11-14] MEDS ORDERED: IOPAMIDOL M200 10 ML VIAL ONE (13:22)
--- NOTE | 2023-11-14 13:44 | P.PCN ---
Date of Procedure: 11/14/23 Procedure(s) Performed: PREOPERATIVE DIAGNOSIS: 1-Lumbar radiculopathy . 2-lumbar degenerative disc disease. 3-lumbar spondylosis with lumbar facet arthropathy without myelopathy. 4- Lumbar foraminal stenosis. 4-postlaminectomy pain syndrome POSTOPERATIVE DIAGNOSIS: 1-lumbar radiculopathy. 2-lumbar degenerative disc disease. 3-lumbar spondylosis with facet arthropathy without myelopathy 4-lumbar foraminal stenosis. 5-postlaminectomy pain syndrome PROCEDURE 1. Transforaminal epidural steroid injection under fluoroscopic guidance at bilateral L3-4 level. (Fluoroscopy images stored on file in the radiology Department ) 2. Lumbar epidurogram . ANESTHESIA: Local with 1% lidocaine 3 ml. EBL: Minimal PROCEDURE INDICATION: The patient with low back pain and radiculopathy symptoms unresponsive to conservative treatment. PROCEDURE DESCRIPTION / TECHNIQUE: The patient was seen and identified in the preoperative area. Risks, benefits, complications, and alternatives were discussed with the patient. The patient agreed to proceed with the procedure and signed the consent, and vital signs were stable. Patient was taken to the OR and time out was completed. The patient was placed in the prone position on procedure table and a pillow was placed under the abdomen to reduce lumbar lordosis. The lumbosacral area was prepped and draped in the usual sterile fashion. Critical pause was taken. Vital signs were closely monitored during the procedure. Using oblique fluoroscopy, the chin of the `Viri dog at right L3-4 level was identified, and the skin and deeper tissues just below was localized with 1% lidocaine. Subsequently, a 22-gauge 5-inch spinal needle was advanced under a tu nneled view fluoroscopic guidance just underneath the chin of the `Viri dog at the right L3-4 Under lateral fluoroscopy, the needle was then advanced to the posterior border of the interforaminal space. After negative aspiration of CSF and blood and with no paresthesias, 1 mL Isovue 200 contrast dye was injected excellent epidurogram and outlining of the nerve root Subsequently, 3 mL of block solution containing 20 mg Depo-Medrol and 2 mL of 0.9% normal saline PF was injected. Needle was removed and the same procedure was repeated at the left L3-4 . At the end of the procedure, skin was cleansed, and bandages were applied. COMPLICATIONS:none DISPOSITION / PLANS: The patient was placed in a supine position and transferred to the recovery area in a stable condition for observation. There was no evidence of lower extremity motor or sensory deficit after the procedure. Patient was discharged from the recovery room after meeting discharge criteria. Home discharge instructions were given to the patient by the staff. The patient was reexamined prior to discharge.
--- NOTE | 2023-11-14 13:48 | FL ---
EXAMINATION TYPE: FL guided pain mgmt statistic Intraoperative/procedural fluoroscopic services were provided. Total fluoroscopy time is 10.9 seconds with a total of 3 submitted images to PACS. Please s ee the operative/procedural note for further details. DAP: [id number] mGym2
[2023-11-14 14:03] VITALS: PULSE 58
[2023-11-14 14:04] VITALS: BP 159/89
== END 2023-11-14 14:17 | disposition home or self-care (01) ==
LOC: ORPAIN 12:27
PROVIDERS: ATTEND Specialist
DX: M51.16 Intervertebral disc disorders with radiculopathy, lumbar region (principal); M47.26 Other spondylosis with radiculopathy, lumbar region; M48.061 Spinal stenosis, lumbar region without neurogenic claudication; Z88.5 Allergy status to narcotic agent; Z79.82 Long term (current) use of aspirin; Z79.899 Other long term (current) drug therapy
CPT/HCPCS: 64483; 99152; Q9966; J1010

== ENCOUNTER → 2023-12-05 | Outpatient (CLI) | payer MEDICARE, OTHER ==
--- NOTE | 2023-12-05 20:54 | XR ---
EXAMINATION TYPE: XR Hip Complete LT DATE OF EXAM: 12/05/2023 3:01 PM CLINICAL INDICATION:Male, 78 years old with history of C79.51 Z79.899 C61 ECONDARY MALIGNANT NEOPLASM OF; [facility] COMPARISON: 04/27/2023. TECHNIQUE: XR Hip Complete LT; hip was examined in the frontal and lateral projections and a AP pelvi s. FINDINGS: No evidence for acute process, joint dislocation or significant soft tissue swelling. Osteo phyte formation of the superior acetabulum of the hip. There is mild joint space narrowing. Fixation hardware in the lower spine appears intact. IMPRESSION: 1. No evidence for acute process. 2. [id number] hip osteoarthrosis.
== END | disposition home or self-care (01) ==
LOC: RADXRMAIN 14:31
PROVIDERS: ATTEND Radiology Radiation Oncology
DX: M16.12 Unilateral primary osteoarthritis, left hip (principal); C79.51 Secondary malignant neoplasm of bone; C61 Malignant neoplasm of prostate; Z79.899 Other long term (current) drug therapy
CPT/HCPCS: 73502

== ENCOUNTER → 2023-12-14 | Outpatient (CLI) | payer MEDICARE, OTHER ==
[2023-12-14 13:08] LABS: African American GFR (CKD) 60 (>60 ml/min/1.73 sqM); Blood Urea Nitrogen 24 mg/dL (9-20); Non-African American GFR(CKD) 52 (>60 ml/min/1.73 sqM)
--- NOTE | 2023-12-16 13:49 | CT ---
EXAMINATION TYPE: CT abdomen pelvis wo/w con DATE OF EXAM: 12/14/2023 COMPARISON: 04/27/2023 INDICATION: GROSS HEMATURIA DLP: 1542.1 mGycm, Automated exposure control for dose reduction was used. CONTRAST: 80ml mL of Isovue 300. Study performed with Oral Contrast TECHNIQUE: Axial images were obtained from above the diaphragm to the pubic rami in the axial plane a t 5 mm thick sections. Reconstructed images are reviewed on the computer in the coronal plane. FINDINGS: Limited CT sections are obtained the lung bases. There is interval development of numerous small rou nded nodules. The largest appears to be within the lateral right lung base measuring 0.9 cm. Series 3 image 6. Complete contrast CT thorax could further evaluate chest. CT ABDOMEN: Liver: Normal Spleen: Normal. Splenule is anterior to the mid spleen. Pancreas: Normal Adrenal glands: The adrenal glands are normal. Gallbladder: Normal Kidneys: No masses are evident. No hydronephrosis is present. Multiple bilateral renal cysts are pr esent. This included 3.0 cm cyst inferior pole right kidney, a mid lateral right renal cyst measuring 3.1 cm a small mid to upper pole right renal cyst measuring 1.9 cm. A cyst is present on the lateral left kidney measuring 3.4 cm. A 2.0 cm cyst on the mid to upper pole left kidney. No renal stones a re identified. Renal cysts are better visualized on postcontrast imaging. Aorta: Vascular calcification is within the aorta. Inferior vena cava: Normal. CT PELVIS: Loops of bowel within the abdomen and pelvis are normal. There are loops of bowel which are incom pletely distended or lack oral contrast limiting their evaluation. Appendix: Normal as visualized. Urinary bladder: Diffuse thickened wall slightly greater along the posterior wall. Correlate for cyst itis or neurogenic bladder. Differential would include inferior urinary bladder mass. This may have some mild enhancement post intravenous contrast. This potentially could be related to some inferior i mpression from the prostate. Genitourinary structures: Prostate is not clearly enlarged. Osseous structures: No suspicious lytic or sclerotic lesions. IMPRESSION: 1. Early phase contrast suggests enhancing inferior urinary bladder mass measuring 2.2 x 2.7 cm with mild diffuse bladder wall thickening. 2 multiple bilateral renal cysts.
== END | disposition home or self-care (01) ==
LOC: RADCTMAIN 12:21
PROVIDERS: ATTEND Urology
DX: N28.1 Cyst of kidney, acquired (principal); N32.89 Other specified disorders of bladder; R31.0 Gross hematuria
CPT/HCPCS: 82565; 84520; 74178; 36415; Q9967

== ENCOUNTER → 2024-03-22 | Outpatient (CLI) | payer MEDICARE, OTHER ==
[2024-03-22 12:27] LABS: African American GFR (CKD) 53 (>60 ml/min/1.73 sqM); Blood Urea Nitrogen 20 mg/dL (9-20); Non-African American GFR(CKD) 46 (>60 ml/min/1.73 sqM)
--- NOTE | 2024-03-22 14:20 | CT ---
EXAMINATION TYPE: CT ChestAbdPelvis w con CT DLP: 1091.2 mGycm, Automated exposure control for dose reduction was used. DATE OF EXAM: 03/22/2024 1:47 PM COMPARISON: 12/14/2023 CLINICAL INDICATION: Male, 79 years old with history of D72.820 LYMPHOCYTOSIS (SYMPTO, C61, C91.10, C 79.51; PHH, lymphocytosis Technique: CT ChestAbdPelvis w con; Multiple axial images were obtained. Two-dimensional coronal and sagittal reconstructions were obtained. Contrast used:100 ml mL of Isovue 300 with IV Contrast, Oral contrast used: with Oral Contrast Findings: CHEST: LUNGS/ PLEURA: Scattered pulmonary nodules throughout the lungs greater than 50. No focal consolidati on, pneumothorax or pleural effusion. A few of the pulmonary nodules appear decreased in size from pr ior including right lower 10 mm nodule previously 14 mm No focal consolidation, pneumothorax or pleur al effusion. AIRWAY: Patent and unremarkable. HEART: Size within normal limits. MEDIASTINUM: No gross evidence of adenopathy. VASCULATURE: No aortic aneurysm. MUSCULOSKELETAL: No acute osseous abnormalities. SOFT TISSUES/LYMPH NODES: Unremarkable. LOWER NECK: No significant findings. ABDOMEN: ABDOMEN LIVER: Unremarkable GALLBLADDER AND BILE DUCTS: Unremarkable. PANCREAS: Unremarkable. SPLEEN: Small splenule is present. ADRENAL GLANDS: Unremarkable. KIDNEYS AND URETERS: No evidence of hydronephrosis or renal calculus. The ureters are unremarkable. Bilateral renal cysts. PELVIS BLADDER: circumferential wall thickening no focal mass. REPRODUCTIVE: Prostate gland is surgically absent. ABDOMEN & PELVIS STOMACH AND BOWEL: No evidence of bowel obstruction. PERITONEUM: No evidence of pneumoperitoneum or free fluid. VASCULATURE: No evidence of aortic aneurysm. MUSCULOSKELETAL: Scattered sclerotic lesions are seen throughout the exam including L3 vertebral body with possible post vertebroplasty changes. T11 vertebral body anteriorly. The sacrum. Left iliac bon e. Right inferior pubic ramus. T3 vertebral body, left proximal femur. Fixation hardware in the lower spine appears intact. LYMPH NODES: No gross evidence for lymphadenopathy. SOFT TISSUE/ABDOMINAL WALL: Unremarkable IMPRESSION: 1. Positive response to therapy with prostatectomy changes and scattered sclerotic lesions. The osse ous stable in size no new lesions within the visualized. There is multiple pulmonary nodules which ap pear mildly decreased in size. 2. Circumferential wall thickening of the bladder correlate for cystitis with urinalysis.
== END | disposition home or self-care (01) ==
LOC: RADCTMAIN 11:28
PROVIDERS: ATTEND Internal Medicine
DX: C79.51 Secondary malignant neoplasm of bone (principal); C91.10 Chronic lymphocytic leukemia of B-cell type not having achieved remission; C61 Malignant neoplasm of prostate; N32.89 Other specified disorders of bladder; R91.8 Other nonspecific abnormal finding of lung field; Z90.79 Acquired absence of other genital organ(s)
CPT/HCPCS: 36415; 71260; 74177; 82565; 84520

== ENCOUNTER → 2024-07-03 | Outpatient (CLI) | payer MEDICARE, OTHER ==
--- NOTE | 2024-07-03 15:23 | XR ---
EXAMINATION TYPE: XR Hip Complete LT DATE OF EXAM: 07/03/2024 2:40 PM COMPARISON: 12/05/2023 CLINICAL INDICATION: Male, 79 years old with history of D72.820 LYMPHOCYTOSIS (SYMPTOMAT C61 C91.10 C 79.51; PHH, pain TECHNIQUE: XR Hip Complete LT; Frontal and lateral views FINDINGS: No evidence for acute process, joint dislocation or significant soft tissue swelling. Osteo phyte formation of the superior acetabulum of the hip. There is mild joint space narrowing. Fixation hardware in the lower spine appears intact. IMPRESSION: 1. No evidence for acute process. 2. Mild hip osteoarthrosis. [facility], , 07/03/2024 3:21 PM
== END | disposition home or self-care (01) ==
LOC: LABWHC1 14:24
PROVIDERS: ATTEND Internal Medicine
DX: D72.820 Lymphocytosis (symptomatic) (principal); C61 Malignant neoplasm of prostate; C79.51 Secondary malignant neoplasm of bone
CPT/HCPCS: 73502

== ENCOUNTER → 2024-10-22 | Outpatient (CLI) | payer MEDICARE, OTHER ==
--- NOTE | 2024-10-22 12:57 | XR ---
EXAMINATION TYPE: XR lumbosacral spine min 4V DATE OF EXAM: 10/22/2024 12:33 PM COMPARISON: None. CLINICAL INDICATION: Male, 79 years old with history of D72.820 LYMPHOCYTOSIS C61CA PROST C91.10 C79. 51, back pain TECHNIQUE: 5 view(s) obtained. FINDINGS: Cement is present within the L3 vertebral body. L1 and L2 vertebral bodies appear normal. Fixation pe dicle screws and rods are present L4-5 through L5-S1. Disc spacer present L4-5 and L5-S1. No spondylo lytic defects are identified. Chronic fracture of the right transverse process of L3 is likely presen t. No compression deformities are evident. Vascular calcifications within the aorta. IMPRESSION: 1. Vertebral plasty L3. 2. Fixation L4-S1 with disc spacers. [facility], , 10/22/2024 12:55 PM
[2024-10-22 13:01] LABS: African American GFR (CKD) 60 (>60 ml/min/1.73 sqM); Blood Urea Nitrogen 22 mg/dL (9-20); Non-African American GFR(CKD) 52 (>60 ml/min/1.73 sqM)
--- NOTE | 2024-10-22 14:59 | CT ---
EXAMINATION TYPE: CT ChestAbdPelvis w con DATE OF EXAM: 10/22/2024 COMPARISON: 03/22/2024 CLINICAL INDICATION: Male, 79 years old with history of D72.820 LYMPHOCYTOSIS C61CA PROST C91.[address] DLP: 1281.20 mGycm Automated exposure control for dose reduction was used. CONTRAST: CT scan of the chest, abdomen and pelvis is performed with Oral Contrast and with IV Contrast, patien t injected with 80ml mL of Isovue 300. FINDINGS: CT chest: There are multiple innumerable pulmonary nodules consistent with metastatic disease. There has been a n interval worsening with some of the nodules increasing slightly in size but there are multiple new nodules as well. There is no airspace consolidation. There is minimal chronic interstitial change in the apices and prieto ng bases. There is no pleural effusion, pleural thickening or pneumothorax. The great vessels and chest are normal there is no mediastinal, hilar or axillary adenopathy. There is a sclerotic lesion in the anterior superior aspect of T11 which has increased in density. Th ere is a stable small sclerotic metastatic deposit in T3. CT abdomen and pelvis: Gallbladder is normal without distention, pericholecystic fluid, wall thickening or gallstone. There is no biliary ductal dilatation. There is a new ill-defined 4 cm hypodensity within the liver consistent with metastatic disease. Ther e is no pancreatic, splenic or adrenal mass. There is no solid renal mass or hydronephrosis. There are multiple cortical and parapelvic cysts of t he kidneys. There is no retroperitoneal adenopathy or hemorrhage in the caliber of the abdominal aorta is normal. The bowel loops are normal in caliber and there is no dilatation or obstruction. No inflammatory sarkar ges identified in the bowel wall and mesentery. There is no free intracranial air or fluid. There is no pelvic mass or adenopathy. There is surgical absence of the prostate gland. There is increasing sclerotic lesion of L3 also involving the posterior elements, right greater than left. There are stable sclerotic metastases to the lesser trochanter of the left femur, right inferio r pubic ramus and right iliac bone. There are postsurgical changes of lumbar fusion and laminectomy from L4 through S1 IMPRESSION: Increasing metastatic disease within the chest, abdomen and pelvis with increasing pulmonary nodules, new metastatic liver lesion and increasing bone metastasis involving T11 and L3 as described above. [facility], , 10/22/2024 2:56 PM
== END | disposition home or self-care (01) ==
LOC: RADCTMAIN 11:52
PROVIDERS: ATTEND Internal Medicine
DX: C61 Malignant neoplasm of prostate (principal); C91.10 Chronic lymphocytic leukemia of B-cell type not having achieved remission; C79.51 Secondary malignant neoplasm of bone; C78.00 Secondary malignant neoplasm of unspecified lung; R91.8 Other nonspecific abnormal finding of lung field
CPT/HCPCS: 82565; 84520; 72110; 71260; 74177; 36415; Q9967

== ENCOUNTER → 2024-12-25 | Outpatient (CLI) | payer MEDICARE, OTHER ==
[2024-12-25 12:15] LABS: African American GFR (CKD) 52 (>60 ml/min/1.73 sqM); Blood Urea Nitrogen 26 mg/dL (9-20); Non-African American GFR(CKD) 45 (>60 ml/min/1.73 sqM)
--- NOTE | 2024-12-25 14:10 | CT ---
EXAMINATION TYPE: CT ChestAbdPelvis w con DATE OF EXAM: 12/25/2024 COMPARISON: 10/22/2024 CLINICAL INDICATION: Male, 79 years old with history of D72.820,C61,C79.51,R11.[address] DLP: 1241.6 mGycm Automated exposure control for dose reduction was used. CONTRAST: CT scan of the chest, abdomen and pelvis is performed with Oral Contrast and with IV Contrast, patien t injected with 80 mL of Isovue 300. FINDINGS: CT chest: There are stable multiple innumerable pulmonary nodules, the largest of which are approximately 9 to 10 mm. There is no abnormal airspace/consolidative density or abnormal interstitial density. There is no pleural effusion, pleural thickening or pneumothorax. The great vessels and chest are normal there is no mediastinal, hilar or axillary adenopathy. There is no change in the sclerotic metastasis of T11. There is a tiny stable sclerotic lesion in T3. There are no pathologic compression fractures in the thoracic spine. There are no rib lesions. CT abdomen and pelvis: Gallbladder is normal without distention, pericholecystic fluid, wall thickening or gallstone. There is no biliary ductal dilatation. The focal liver metastasis is decreased from 4 cm to approximately 2.9 cm. There are no new lesions w ithin the liver, pancreas, spleen or adrenal glands. There is no solid renal mass or hydronephrosis. There are multiple renal cysts. There is no retroperi toneal adenopathy or hemorrhage in the caliber of the abdominal aorta is normal. The bowel loops are normal in caliber and there is no dilatation or obstruction. No inflammatory sarkar ges identified in the bowel wall and mesentery. There is no free intracranial air or fluid. There is surgical absence of the prostate gland. Urinary bladder is not well distended but the wall i s diffusely thickened possibly from prior chronic bilateral obstruction. There are postsurgical changes of laminectomy and fusion from L4 through S1. There is a stable sclerotic lesion in the lesser trochanter of the left femur. There are stable small sclerotic lesions in the right iliac wing. Lesion of L3 status post vertebroplasty. IMPRESSION: 1. No change in the diffuse pulmonary metastatic nodules. 2. Decrease in size in the liver metastasis as described above. 3. No significant interval change in the mode metastasis as described above. [facility], , 12/25/2024 2:07 PM
== END | disposition home or self-care (01) ==
LOC: RADCTMAIN 11:19
PROVIDERS: ATTEND Internal Medicine
DX: C61 Malignant neoplasm of prostate (principal); C79.51 Secondary malignant neoplasm of bone; C78.7 Secondary malignant neoplasm of liver and intrahepatic bile duct; C91.10 Chronic lymphocytic leukemia of B-cell type not having achieved remission; R11.11 Vomiting without nausea; R91.8 Other nonspecific abnormal finding of lung field
CPT/HCPCS: 82565; 84520; 71260; 74177; 36415; Q9967

== ENCOUNTER → 2025-01-29 | Outpatient (CLI) | payer MEDICARE, OTHER ==
[2025-01-29 12:50] LABS: African American GFR (CKD) 50 (>60 ml/min/1.73 sqM); Blood Urea Nitrogen 24 mg/dL (9-20); Non-African American GFR(CKD) 43 (>60 ml/min/1.73 sqM)
--- NOTE | 2025-01-29 14:35 | CT ---
EXAMINATION TYPE: CT ChestAbdPelvis wo con DATE OF EXAM: 01/29/2025 COMPARISON: EXAMINATION TYPE: CT ChestAbdPelvis wo con DATE OF EXAM: 01/29/2025 COMPARISON: 12/25/2024 CLINICAL INDICATION: Male, 80 years old with history of D72.820 LYMPHOCYTOSIS (SYMPTOMATIC) CT DLP: 836.4 mGycm Automated exposure control for dose reduction was used. CONTRAST: CT scan of the chest, abdomen and pelvis is performed with Oral Contrast and , patient injected with mL of . FINDINGS: CT chest: There are multiple innumerable bilateral pulmonary nodules. The largest of which are in the right mid dle lobe measuring 9.8 mm in the right infrahilar region measuring 10.5 mm. Compared to the prior jing dy the right middle lobe nodule slightly smaller in size in the right infrahilar nodule is slightly l arger in size. There is mild interstitial density in the left lower lobe and in the right middle lobe. There is no a irspace consolidation There is no pleural effusion or pneumothorax.. The great vessels and chest are normal there is no mediastinal, hilar or axillary adenopathy. No focal osseous lesions are seen. CT abdomen and pelvis: Gallbladder is normal without distention, pericholecystic fluid, wall thickening or gallstone. There is no biliary ductal dilatation. A 19 mm hypodensity in the liver is possibly slightly decreased in size and measures 18 mm although e valuation is limited due to lack of contrast. A second adjacent lesion is possible in the left lobe o f the liver. There is no organomegaly involving the pancreas, spleen or adrenal glands. There is no renal calcification or hydronephrosis.. There is no retroperitoneal adenopathy or hemorrh age in the caliber of the abdominal aorta is normal. The bowel loops are normal in caliber and there is no dilatation or obstruction. No inflammatory sarkar ges identified in the bowel wall and mesentery. There is no free intracranial air or fluid. There is no pelvic mass or adenopathy. There is surgical absence of the prostate gland. There is stab le mild thickening of the urinary bladder wall likely a basis of prior chronic lateral obstruction. There are postsurgical changes of lumbar fusion from L4 through S1. There is vertebroplasty of L3 which is stable. There is a sclerotic density in the anterior superior aspect of T11. There is a stable sclerotic metastasis in the lesser trochanter of the left hip and in the right iliac bone. IMPRESSION: Within the limitation of this noncontrast exam there has been no significant interval change compared to the prior study. There are diffuse innumerable pulmonary metastases, liver metastasis and bone me tastasis as described above. [facility], , 01/29/2025 2:33 PM
== END | disposition home or self-care (01) ==
LOC: RADPROMAIN 11:36
PROVIDERS: ATTEND Internal Medicine
DX: Z51.11 Encounter for antineoplastic chemotherapy (principal); C61 Malignant neoplasm of prostate; C91.10 Chronic lymphocytic leukemia of B-cell type not having achieved remission; C79.51 Secondary malignant neoplasm of bone; D47.2 Monoclonal gammopathy; C7A.1 Malignant poorly differentiated neuroendocrine tumors; D70.1 Agranulocytosis secondary to cancer chemotherapy; C78.00 Secondary malignant neoplasm of unspecified lung; C78.7 Secondary malignant neoplasm of liver and intrahepatic bile duct
CPT/HCPCS: 82565; 84520; 71250; 74176; 36415; J1642